=== PATIENT | female | born 1980 | race Caucasian/White ===

== ENCOUNTER 2024-09-13 16:53 | Observation (INO) ==
[2024-09-13] MEDS: OPTIRAY 320 125ml IV ONE (17:03)
--- NOTE | 2024-09-13 17:26 | CT Scan Report ---
Clinical History: Neurological deficit. Possible stroke Technique: Axial computed tomography images were obtained of the brain from the vertex to the skull base without intravenous contrast. Comparison is made to the prior CT dated 09/05/2021 Findings: There is no sign of intracranial hemorrhage. There is normal saavedra-white matter differentiation with no sign of acute or old infarction. No midline shift or other form of herniation is identified. There is no hydrocephalus. No obvious mass lesion is seen on this noncontrast examination. The visualized portions of the orbits and paranasal sinuses appear unremarkable. The mastoid air cells appear clear Impression: Unremarkable noncontrast CT of the brain These findings were discussed with Dr. An at 5:25 PM on 09/13/2024 Electronically signed by Jose Roberto Hampton 09-13-2024 5:26 PM
--- NOTE | 2024-09-13 17:29 | Emergency Department Note ---
Impression & Plan Stroke-like symptoms, Chest pain ED Provider Note NAME: ARLEEN CHAPMAN AGE: 44 SEX: F : 1980 ARRIVES VIA: Walk-In INFORMANT: Patient, ED PROVIDER(S): Olu An DO CHIEF COMPLAINT: Strokelike symptoms HPI: The patient is a 44-year-old female who presented to the emergency department for an evaluation of strokelike symptoms. At approximately 1640 today she started having chest pain which was followed by anxiety as well as left facial droop. She also complains of left-sided numbness. The patient denies having any fever or headache. She denies having any difficulty breathing. ROS: See above HPI for pertinent positives & negatives. A total of 10 systems reviewed and were otherwise negative. PAST MEDICAL HISTORY: See Below PAST SURGICAL HISTORY: See Below FAMILY HISTORY: See Below SOCIAL HISTORY: See Below HOME MEDICATIONS: See Below ALLERGIES: See Below VITALS: See Below PHYSICAL EXAMINATION: GENERAL: The patient is awake and alert. The patient is very anxious. EYES: The conjunctivae are clear. The pupils are round and reactive. EARS, NOSE, MOUTH AND THROAT: The nose is without any evidence of any deformity. NECK: The neck is nontender and supple. RESPIRATORY: Normal respiratory effort is noted there is no evidence of wheezing rhonchi or rales CARDIOVASCULAR: Tachycardic and regular heart sounds were noted auscultation. There is no definite murmur. GASTROINTESTINAL: The abdomen is soft. Abdomen is nontender. MUSCULOSKELETAL/EXTREMITIES: There is no evidence of gross deformity full range of motion is noted in the hips and shoulders. SKIN: There is no obvious evidence of any rash. There are no petechiae, pallor or cyanosis noted. NEUROLOGIC: Patient is awake alert and oriented x3 strength is symmetric patellar reflexes are 2+ bilaterally. There was a left-sided facial droop. Forehead appears to be slightly involved. MEDICAL DECISION MAKING: The patient is a 44-year-old female who presented to the emergency department with strokelike symptoms. The patient was inside the 3-hour window. She was made a stroke alert from triage. The patient was evaluated by myself. I discussed the patient's laboratory and radiographic studies with her. I did discuss the patient's condition with the telestroke neurologist from [facility]. The patient's symptoms were rapidly improving. Her blood pressure also was rapidly improving. The patient was not felt to be a candidate for TNK. She was felt to be a candidate for inpatient workup further for her strokelike symptoms. I discussed her condition with the on-call [facility] hospitalist group. Triage Nursing notes reviewed. Prior medical records reviewed Vital Signs: reviewed and remarkable for initial hypertension and tachycardia. Differential diagnosis: Infection, dehydration, metabolic abnormality, hypo/hyperglycemia, electrolyte disturbance, anemia, hypoxia, cardiac sources, intracerebral event, toxicologic, neurologic, as well as other pathologies. ER treatment provided: See below Diagnostics interpreted by me: ECG: EKG was obtained in the emergency department. My interpretation is sinus tachycardia at 109 bpm. There were no PVCs noted. Nonspecific ST abnormalities were noted. This was compared to a tracing from January 10, 2020. No changes were noted. Cardiac Monitoring: An order was placed for continuous cardiac monitoring. The monitor shows a rate of 98 bpm with sinus rhythm. Laboratory studies: As stated above and show below. Imaging studies: See below. Radiographic imaging was reviewed by myself Consultation(s): I discussed this case with Dr. Correia who is on-call for telestroke neurology. I discussed this case with Mary who is on for the [facility] hospitalist group. Past Med/Surg History Problem List (Updated 09/13/24 @ 18:53 by Olu An DO) Chest pain (Acute) Stroke-like symptoms (Acute) TIA (transient ischemic attack) Anxiety No significant past surgical history No significant past medical history Social History Smoking Status: Never smoker Preferred Language: [place] marital status: current occupational status: unemployed Feels Safe at Home: Yes Allergies Allergies Allergy/AdvReac Type Severity Reaction Status Date / Time No Known Allergies Allergy Verified 09/13/24 17:23 Home Meds Home Medications Medication Instructions Recorded Confirmed acetaminophen 500 mg tablet 1,000 mg PO Q6H PRN Pain 09/05/21 09/13/24 (Tylenol Extra Strength) albuterol sulfate 90 mcg/actuation 2 puff inhalation Q6H PRN 09/13/24 09/13/24 aerosol inhaler Shortness Of Breath Or Wheezing bupropion HCl 150 mg 24 hr tablet, 150 mg PO QAM 09/13/24 09/13/24 extended release fluoxetine 20 mg capsule 40 mg PO QAM 09/13/24 09/13/24 norethindrone (contraceptive) 0.35 0.35 mg PO QAM 09/13/24 09/13/24 mg tablet (Jencycla) Results & Data (ED) Vital Signs Vital Signs - 24 hr 09/13/24 16:54 09/13/24 17:02 09/13/24 17:24 Temperature 36.8 C Temperature Source Temporal Artery Scan Pulse Rate 118 H 103 H Pulse Rate [Apical] Respiratory Rate 18 18 Respiratory Effort / Characteristics Non-Labored Spontaneous Non-Labored Respiratory Depth Normal Normal Respiratory Pattern Blood Pressure 163/110 H Blood Pressure [Left Arm] Blood Pressure Mean 127 Blood Pressure Mean [Left Arm] Blood Pressure Position Sitting Pulse Oximetry 97 Oxygen Delivery Method Room Air Sepsis Recent Fever Within 48 Hours No Sepsis New/Unexplained Change in Mental Status No Sepsis Action Taken by Nursing No Action Required 09/13/24 17:25 09/13/24 17:57 09/13/24 18:00 Temperature Temperature Source Pulse Rate Pulse Rate [Apical] 108 H 111 H 109 H Respiratory Rate 20 20 20 Respiratory Effort / Characteristics Non-Labored Non-Labored Non-Labored Spontaneous Respiratory Depth Normal Normal Normal Respiratory Pattern Regular Blood Pressure Blood Pressure [Left Arm] 141/96 H 138/94 129/98 Blood Pressure Mean Blood Pressure Mean [Left Arm] 111 108 108 Blood Pressure Position Pulse Oximetry 96 94 95 Oxygen Delivery Method Room Air Room Air Room Air Sepsis Recent Fever Within 48 Hours Sepsis New/Unexplained Change in Mental Status Sepsis Action Taken by Nursing 09/13/24 18:00 Temperature Temperature Source Pulse Rate 112 H Pulse Rate [Apical] Respiratory Rate 18 Respiratory Effort / Characteristics Respiratory Depth Respiratory Pattern Blood Pressure Blood Pressure [Left Arm] Blood Pressure Mean Blood Pressure Mean [Left Arm] Blood Pressure Position Pulse Oximetry 96 Oxygen Delivery Method Room Air Sepsis Recent Fever Within 48 Hours Sepsis New/Unexplained Change in Mental Status Sepsis Action Taken by Correction Medications Current Medication List: was personally reviewed by me Laboratory Data Attestation: I reviewed the patient's lab results. 09/13/24 17:21 09/13/24 17:21 Lab Results 09/13/24 Range/Units 17:21 WBC 6.45 (4.8-10.8) K/ul RBC 4.70 (4.20-5.40) M/uL Hgb 13.9 (12.0-16.0) g/dl Hct 40.2 (37.0-47.0) % MCV 85.5 (80.0-100.0) fL MCH 29.6 (25.0-34.0) pg MCHC 34.6 (32.0-36.0) g/dL RDW Std Deviation 36.7 (36.4-46.3) fL RDW Coeff of Tala 11.9 (11.5-14.5) % Plt Count 239 (130-400) K/uL MPV 9.7 (9.4-12.4) fL Immature Gran % (Auto) 0.2 % Neut % (Auto) 67.4 % Lymph % (Auto) 22.8 % Clinton % (Auto) 7.4 % Eos % (Auto) 1.7 % Baso % (Auto) 0.5 % Neut # (Auto) 4.35 (1.40-6.50) K/uL Lymph # (Auto) 1.47 (1.20-3.40) K/uL Clinton # (Auto) 0.48 (0.11-0.59) K/uL Eos # (Auto) 0.11 (0.00-0.50) K/uL Baso # (Auto) 0.03 (0.00-0.20) K/uL Immature Gran # (Auto) 0.01 (0.01-0.20) K/uL PT 10.4 (9.0-12.0) Seconds INR 1.0 (0.9-1.1) APTT 27 (21-31) Seconds PTT Ratio 1.0 Sodium 136 (136-145) mmol/L Potassium 4.2 (3.5-5.1) mmol/L Chloride 104 (98-107) mmol/L Carbon Dioxide 25 (21-32) mmol/L Anion Gap 7 (3-11) BUN 16 (6-23) mg/dl Creatinine 1.20 (0.6-1.2) mg/dl Est Cr Clr Drug Dosing 78.5 ml/min eGFR 56.89 BUN/Creatinine Ratio 13.3 (10-20) Glucose 130 H (70-99(Fasting)) mg/dl Calcium 9.0 (8.6-10.3) mg/dl Magnesium 1.8 (1.7-2.4) mg/dl Total Bilirubin 0.3 (0.2-1.0) mg/dl AST 20 (13-39) U/L ALT 21 (7-52) U/L Alkaline Phosphatase 81 (34-104) U/L Troponin I High Sens < 2.3 (0-14) pg/ml Total Protein 6.8 (6.0-8.3) gm/dl Albumin 3.9 (3.4-5.0) gm/dl Globulin 2.9 (2.5-4.0) gm/dl Albumin/Globulin Ratio 1.3 (0.9-2) HCG, Quant 1 mIU/ml Administered Medications Discontinued Medications Ioversol (Optiray 320 125ml) 118 ml IV ONCE ONE Stop: 09/13/24 17:04 Last Admin: 09/13/24 17:03 Dose: 118 ml Documented By: DENNY Lorazepam (Lorazepam 2 Mg/1 Ml Vial) 1 mg IV NOW STA Stop: 09/13/24 17:38 Last Admin: 09/13/24 17:42 Dose: 1 mg Documented By: LIVE Imaging Data Attestation: I personally reviewed and interpreted this imaging study as follows: My Impression: 1 view chest x-ray was obtained in the emergency department. My interpretation is no free air or definite infiltrate, final report below. CT of the brain was obtained in the emergency department. My interpretation is no intracranial hemorrhage or mass effect, final report below. Radiologist's Impression: Chest X-Ray 09/13/24 16:59 Clinical History: Possible stroke Technique: A frontal view of the chest was obtained Findings: There are no confluent pulmonary infiltrates. The heart size is within normal limits. No pleural effusion or pneumothorax is seen. There is no definite pulmonary nodule. No fracture is noted. No foreign body is seen Impression: No active disease Electronically signed by Jose Roberto Hampton 09-13-2024 5:[address] 09/13/24 16:59 Clinical History: Neurological deficit. Possible stroke Technique: Axial computed tomography images were obtained of the brain from the vertex to the skull base without intravenous contrast. Comparison is made to the prior CT dated 09/05/2021 Findings: There is no sign of intracranial hemorrhage. There is normal saavedra-white matter differentiation with no sign of acute or old infarction. No midline shift or other form of herniation is identified. There is no hydrocephalus. No obvious mass lesion is seen on this noncontrast examination. The visualized portions of the orbits and paranasal sinuses appear unremarkable. The mastoid air cells appear clear Impression: Unremarkable noncontrast CT of the brain These findings were discussed with Dr. An at 5:25 PM on 09/13/2024 Electronically signed by Jose Roberto Hampton 09-13-2024 5:26 PM Head CTA 09/13/24 16:59 Clinical History: Neurological deficit. Possible stroke Technique: Axial computed tomography images were obtained of the brain after the administration of intravenous contrast according to the CT angiogram protocol Findings: No definite stenosis or aneurysm is seen of the anterior, middle, or posterior cerebral artery circulations. The visualized vertebral arteries and the basilar artery appear unremarkable Impression: Unremarkable CTA of the brain These findings were discussed with Dr. An at 5:25 PM on 09/13/2024 Electronically signed by Jose Roberto Hampton 09-13-2024 5:26 PM Neck CTA 09/13/24 16:59 Clinical History: Neurological deficit. Possible stroke Technique: Axial computed tomography images were obtained of the neck after the administration of intravenous contrast according to the CT angiogram protocol Findings: No stenosis is seen of the common carotid arteries bilaterally. The carotid bulbs appear normal. The remainder of the internal carotid arteries appear patent bilaterally. No stenosis of the external carotid arteries is seen The vertebral arteries are patent bilaterally with no significant stenosis seen. The visualized thoracic aorta appears unremarkable There is multilevel degenerative disc disease and osteoarthritis of the cervical spine. Impression: Unremarkable CTA of the neck Electronically signed by Jose Roberto Hampton 09-13-2024 5:28 PM Chest CTA 09/13/24 17:01 Clinical history: Possible stroke Technique: Axial computed tomography images were obtained of the chest before and after the administration of intravenous contrast according to the CT angiogram protocol Findings: There is mild dependent subsegmental atelectasis in both lower lobes. The lungs otherwise appear clear without infiltrate or mass. There is no pleural effusion or pneumothorax. There is no sign of pulmonary fibrosis or other diffuse interstitial process. No endobronchial lesion is seen There is no mediastinal, hilar, or axillary adenopathy. The thoracic aorta appears unremarkable with no sign of aneurysm or dissection. There is no pericardial effusion. There is no definite sign of pulmonary embolism. The visualized upper abdomen appears unremarkable. No fracture is seen. No focal osseous lesion is evident Impression: 1. Normal-appearing thoracic aorta 2. No definite sign of pulmonary embolism 3. Essentially normal-appearing lungs Electronically signed by Jose Roberto Hampton 09-13-2024 5:30 PM Discharge Plan Visit Data Chief Complaint: TIA Symptoms Stated Complaint: LEFT SIDE FACIAL NUMBNESS, CHEST PAIN ED Provider: Olu An Discharge Problem: Stroke-like symptoms, Chest pain Patient Disposition: Being Evaluated by Hospitalist Forms Stand Alone Forms: [facility] Prescriptions Prescriptions: No Action acetaminophen [Tylenol Extra Strength] 500 mg Tablet 1,000 mg PO Q6H PRN (Reason: Pain) albuterol sulfate 90 mcg/actuation HFA aerosol inhaler 2 puff INHALATION Q6H PRN (Reason: Shortness Of Breath Or Wheezing) norethindrone (contraceptive) [Jencycla] 0.35 mg tablet 0.35 mg PO QAM fluoxetine 20 mg capsule 40 mg PO QAM bupropion HCl 150 mg tablet extended release 24 hr 150 mg PO QAM Referrals Referrals: PCP,NO [Physician] -
[2024-09-13 17:34] LABS: Basophils # (auto) 0.03 K/uL (0.00-0.20); Basophils % (auto) 0.5 %; Eosinophils # (auto) 0.11 K/uL (0.00-0.50); Eosinophils % (auto) 1.7 %; Hematocrit (blood only) 40.2 % (37.0-47.0); Hemoglobin 13.9 g/dl (12.0-16.0); Immature Granulocytes # (auto) 0.01 K/uL (0.01-0.20); Immature Granulocytes % (auto) 0.2 %; Lymphocytes # (auto) 1.47 K/uL (1.20-3.40); Lymphocytes % (auto) 22.8 %; Mean Corpuscular Hemoglobin 29.6 pg (25.0-34.0); Mean Corpuscular Hgb Conc 34.6 g/dL (32.0-36.0); Mean Corpuscular Volume 85.5 fL (80.0-100.0); Mean Platelet Volume 9.7 fL (9.4-12.4); Monocytes # (auto) 0.48 K/uL (0.11-0.59); Monocytes % (auto) 7.4 %; Neutrophils # (auto) 4.35 K/uL (1.40-6.50); Neutrophils % (auto) 67.4 %; Platelet Count 239 K/uL (130-400); RDW Coefficient of Variation 11.9 % (11.5-14.5); RDW Standard Deviation 36.7 fL (36.4-46.3); White Blood Count 6.45 K/ul (4.8-10.8)
--- NOTE | 2024-09-13 17:39 | XRay Report ---
Clinical History: Possible stroke Technique: A frontal view of the chest was obtained Findings: There are no confluent pulmonary infiltrates. The heart size is within normal limits. No pleural effusion or pneumothorax is seen. There is no definite pulmonary nodule. No fracture is noted. No foreign body is seen Impression: No active disease Electronically signed by Jose Roberto Hampton 09-13-2024 5:38 PM
[2024-09-13] MEDS: LORazepam 2 MG/1 ML VIAL IV STA (17:42)
[2024-09-13 17:53] LABS: Alanine Aminotransferase 21 U/L (7-52); Albumin Globulin Ratio 1.3 (0.9-2); Albumin Level 3.9 gm/dl (3.4-5.0); Alkaline Phosphatase 81 U/L (34-104); Anion Gap 7 (3-11); Aspartate Aminotransferase 20 U/L (13-39); BUN Creatinine Ratio 13.3 (10-20); Bilirubin,Total 0.3 mg/dl (0.2-1.0); Blood Urea Nitrogen 16 mg/dl (6-23); Carbon Dioxide 25 mmol/L (21-32); Chloride 104 mmol/L (98-107); Creatinine Clr Calc Pharmacy 78.5 ml/min; Globulin 2.9 gm/dl (2.5-4.0); Glucose 130 mg/dl (70-99(Fasting)); Magnesium 1.8 mg/dl (1.7-2.4); Potassium 4.2 mmol/L (3.5-5.1); Sodium 136 mmol/L (136-145); Total Protein 6.8 gm/dl (6.0-8.3)
[2024-09-13 18:00] LABS: Troponin I High Sensitivity < 2.3 pg/ml (0-14)
[2024-09-13 18:20] LABS: Partial Thromboplastin Time 27 Seconds (21-31); Prothrombin Time 10.4 Seconds (9.0-12.0)
--- NOTE | 2024-09-13 18:29 | History & Physical Report ---
Date of Service September 13, 2024 Assessment & Plan (1) Anxiety: (2) TIA (transient ischemic attack): Plan The patient is a 44-year-old female who presented to the ED on with complaints of left-sided chest pain, left facial numbness and right-sided facial droop Rule out TIA/CVA: Head CT negative, NIH 2, left facial numbness and mild right facial droop noted No TNK per neurology, admit for routine stroke rule out, head CT/head/neck CTA negative Check MRI, check echo, check cholesterol, check A1c Permissive hypertension, telemetry monitoring, neurology consult Hx anxiety: Continue home anxiety medications including fluoxetine/Wellbutrin A total of 60 minutes was spent on chart review/reviewing diagnostic data/facilitating plan of care/discussion with consultants Full code DVT prophylaxis:Lovenox History of Present Illness Chief Complaint: Left-sided chest pain, left facial numbness Primary Care Provider: Venus Carbajal MD The patient is a 44-year-old female with a past medical history of anxiety who presents to the ED on with complaints of left-sided chest pain, left facial numbness, mild right facial droop. Patient reports she was cooking when she developed left-sided chest pain. She then reports developing left facial numbness. She denies any generalized weakness. Denies any nausea/vomiting/diarrhea/abdominal pain. Denies any histories of stroke. She is a non-smoker. She does not drink. Reports being on estrogen containing control over the past 2 years. Her symptoms continue to slowly improve on exam. Her chest pain is now resolved. On arrival to the ED, labs fairly unremarkable. Glucose mildly elevated 130, troponin negative, chest pain and symptoms improved after Ativan administration in ER Chest x-ray negative Head CT negative Head/neck CTA negative Chest CTA negative for PE The patient will be admitted for stroke rule out Allergies Allergy/AdvReac Type Severity Reaction Status Date / Time No Known Allergies Allergy Verified 09/13/24 17:23 Home Medications Medication Instructions Recorded Confirmed Type acetaminophen 500 mg tablet 1,000 mg PO Q6H PRN Pain 09/05/21 09/13/24 History (Tylenol Extra Strength) albuterol sulfate 90 mcg/actuation 2 puff inhalation Q6H PRN 09/13/24 09/13/24 History aerosol inhaler Shortness Of Breath Or Wheezing bupropion HCl 150 mg 24 hr tablet, 150 mg PO QAM 09/13/24 09/13/24 History extended release fluoxetine 20 mg capsule 40 mg PO QAM 09/13/24 09/13/24 History norethindrone (contraceptive) 0.35 0.35 mg PO QAM 09/13/24 09/13/24 History mg tablet (Jencycla) Past Med/Surg History Problem List (Updated 09/13/24 @ 18:53 by Olu An DO) Chest pain (Acute) Stroke-like symptoms (Acute) TIA (transient ischemic attack) Anxiety No significant past surgical history No significant past medical history Social History Smoking Status: Never smoker Second Hand Exposure: Yes; Do You Dip or Chew Tobacco: No; Tobacco Cessation Education Requested by Patient: No Hx Alcohol Use: No Hx Substance Use: No Preferred Language: Sierra Leonean Communication Ability: Effective 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 Required: No Beliefs That Will Affect Care: None marital status: Current Living Situation: Spouse current occupational status: unemployed Other Information That Helps Us Care for You: No Feels Safe at Home: Yes Safety Concerns: Feels Safe At This Time Assistive Devices: None Review of Systems Review of Systems: All systems reviewed & are unremarkable except as noted in HPI & below Physical Exam Constitutional: WD/WN, vitals as above Eyes: PERRL, conjunctivae normal, anicteric sclerae ENMT: external ear and nose normal, oropharynx normal Neck: trachea midline, no thyromegaly Respiratory: normal respiratory effort, lungs clear to auscultation Cardiovascular: RRR, no murmur, no edema Gastrointestinal (Abdomen): normal bowel sounds, soft, nontender, no hepatosplenomegaly Musculoskeletal: no cyanosis or clubbing, extremities motor strength 5/5 Neurologic: PERRL, EOMI, accommodation nl, no face palsy, no dysarthria Psychiatric: A+Ox3, euthymic affect Lymphatic: no cervical or axillary lymphadenopathy Results & Data Results & Data Vital Signs (Past 12 Hours) Vital Signs Temp Pulse Pulse Resp BP BP Pulse Ox 09/13/24 18:00 112 H 18 96 09/13/24 18:00 109 H 20 129/98 95 09/13/24 17:57 111 H 20 138/94 94 09/13/24 17:25 108 H 20 141/96 H 96 09/13/24 17:24 103 H 09/13/24 17:02 18 09/13/24 16:54 36.8 C 118 H 18 163/110 H 97 O2 Del Method 09/13/24 18:00 Room Air 09/13/24 18:00 Room Air 09/13/24 17:57 Room Air 09/13/24 17:25 Room Air 09/13/24 17:24 09/13/24 17:02 09/13/24 16:54 Room Air Diagnostic Findings Laboratory Results WBC 6.45 K/ul (4.8-10.8) 09/13/24 17:21 RBC 4.70 M/uL (4.20-5.40) 09/13/24 17:21 Hgb 13.9 g/dl (12.0-16.0) 09/13/24 17:21 Hct 40.2 % (37.0-47.0) 09/13/24 17:21 MCV 85.5 fL (80.0-100.0) 09/13/24 17:21 MCH 29.6 pg (25.0-34.0) 09/13/24 17:21 MCHC 34.6 g/dL (32.0-36.0) 09/13/24 17:21 RDW Std Deviation 36.7 fL (36.4-46.3) 09/13/24 17:21 RDW Coeff of Tala 11.9 % (11.5-14.5) 09/13/24 17:21 Plt Count 239 K/uL (130-400) 09/13/24 17:21 MPV 9.7 fL (9.4-12.4) 09/13/24 17:21 Immature Gran % (Auto) 0.2 % 09/13/24 17:21 Neut % (Auto) 67.4 % 09/13/24 17:21 Lymph % (Auto) 22.8 % 09/13/24 17:21 Nance % (Auto) 7.4 % 09/13/24 17:21 Eos % (Auto) 1.7 % 09/13/24 17:21 Baso % (Auto) 0.5 % 09/13/24 17:21 Neut # (Auto) 4.35 K/uL (1.40-6.50) 09/13/24 17:21 Lymph # (Auto) 1.47 K/uL (1.20-3.40) 09/13/24 17:21 Nance # (Auto) 0.48 K/uL (0.11-0.59) 09/13/24 17:21 Eos # (Auto) 0.11 K/uL (0.00-0.50) 09/13/24 17:21 Baso # (Auto) 0.03 K/uL (0.00-0.20) 09/13/24 17:21 Immature Gran # (Auto) 0.01 K/uL (0.01-0.20) 09/13/24 17:21 PT 10.4 Seconds (9.0-12.0) 09/13/24 17:21 INR 1.0 (0.9-1.1) 09/13/24 17:21 APTT 27 Seconds (21-31) 09/13/24 17:21 PTT Ratio 1.0 09/13/24 17:21 Sodium 136 mmol/L (136-145) 09/13/24 17:21 Potassium 4.2 mmol/L (3.5-5.1) 09/13/24 17:21 Chloride 104 mmol/L (98-107) 09/13/24 17:21 Carbon Dioxide 25 mmol/L (21-32) 09/13/24 17:21 Anion Gap 7 (3-11) 09/13/24 17:21 BUN 16 mg/dl (6-23) 09/13/24 17:21 Creatinine 1.20 mg/dl (0.6-1.2) 09/13/24 17:21 Est Cr Clr Drug Dosing 78.5 ml/min 09/13/24 17:21 eGFR 56.89 09/13/24 17:21 BUN/Creatinine Ratio 13.3 (10-20) 09/13/24 17:21 Glucose 130 mg/dl (70-99(Fasting)) H 09/13/24 17:21 Calcium 9.0 mg/dl (8.6-10.3) 09/13/24 17:21 Magnesium 1.8 mg/dl (1.7-2.4) 09/13/24 17:21 Total Bilirubin 0.3 mg/dl (0.2-1.0) 09/13/24 17:21 AST 20 U/L (13-39) 09/13/24 17:21 ALT 21 U/L (7-52) 09/13/24 17:21 Alkaline Phosphatase 81 U/L (34-104) 09/13/24 17:21 Troponin I High Sens < 2.3 pg/ml (0-14) 09/13/24 17:21 Total Protein 6.8 gm/dl (6.0-8.3) 09/13/24 17:21 Albumin 3.9 gm/dl (3.4-5.0) 09/13/24 17:21 Globulin 2.9 gm/dl (2.5-4.0) 09/13/24 17:21 Albumin/Globulin Ratio 1.3 (0.9-2) 09/13/24 17:21 HCG, Quant 1 mIU/ml 09/13/24 17:21 Impressions Chest X-Ray 09/13/24 16:59 Clinical History: Possible stroke Technique: A frontal view of the chest was obtained Findings: There are no confluent pulmonary infiltrates. The heart size is within normal limits. No pleural effusion or pneumothorax is seen. There is no definite pulmonary nodule. No fracture is noted. No foreign body is seen Impression: No active disease Electronically signed by Jose Roberto Hampton 09-13-2024 5:[address] 09/13/24 16:59 Clinical History: Neurological deficit. Possible stroke Technique: Axial computed tomography images were obtained of the brain from the vertex to the skull base without intravenous contrast. Comparison is made to the prior CT dated 09/05/2021 Findings: There is no sign of intracranial hemorrhage. There is normal saavedra-white matter differentiation with no sign of acute or old infarction. No midline shift or other form of herniation is identified. There is no hydrocephalus. No obvious mass lesion is seen on this noncontrast examination. The visualized portions of the orbits and paranasal sinuses appear unremarkable. The mastoid air cells appear clear Impression: Unremarkable noncontrast CT of the brain These findings were discussed with Dr. An at 5:25 PM on 09/13/2024 Electronically signed by Jose Roberto Hampton 09-13-2024 5:26 PM Head CTA 09/13/24 16:59 Clinical History: Neurological deficit. Possible stroke Technique: Axial computed tomography images were obtained of the brain after the administration of intravenous contrast according to the CT angiogram protocol Findings: No definite stenosis or aneurysm is seen of the anterior, middle, or posterior cerebral artery circulations. The visualized vertebral arteries and the basilar artery appear unremarkable Impression: Unremarkable CTA of the brain These findings were discussed with Dr. An at 5:25 PM on 09/13/2024 Electronically signed by Jose Roberto Hampton 09-13-2024 5:26 PM Neck CTA 09/13/24 16:59 Clinical History: Neurological deficit. Possible stroke Technique: Axial computed tomography images were obtained of the neck after the administration of intravenous contrast according to the CT angiogram protocol Findings: No stenosis is seen of the common carotid arteries bilaterally. The carotid bulbs appear normal. The remainder of the internal carotid arteries appear patent bilaterally. No stenosis of the external carotid arteries is seen The vertebral arteries are patent bilaterally with no significant stenosis seen. The visualized thoracic aorta appears unremarkable There is multilevel degenerative disc disease and osteoarthritis of the cervical spine. Impression: Unremarkable CTA of the neck Electronically signed by Jose Roberto Hampton 09-13-2024 5:28 PM Chest CTA 09/13/24 17:01 Clinical history: Possible stroke Technique: Axial computed tomography images were obtained of the chest before and after the administration of intravenous contrast according to the CT angiogram protocol Findings: There is mild dependent subsegmental atelectasis in both lower lobes. The lungs otherwise appear clear without infiltrate or mass. There is no pleural effusion or pneumothorax. There is no sign of pulmonary fibrosis or other diffuse interstitial process. No endobronchial lesion is seen There is no mediastinal, hilar, or axillary adenopathy. The thoracic aorta appears unremarkable with no sign of aneurysm or dissection. There is no pericardial effusion. There is no definite sign of pulmonary embolism. The visualized upper abdomen appears unremarkable. No fracture is seen. No focal osseous lesion is evident Impression: 1. Normal-appearing thoracic aorta 2. No definite sign of pulmonary embolism 3. Essentially normal-appearing lungs Electronically signed by Jose Roberto Hampton 09-13-2024 5:30 PM Supervising Physician Co-Signing Physician Notes Attending addendum: The patient was seen and examined in the emergency She was admitted with TIA symptoms and chest pain with history of anxiety and depression She complained to have some numbness or weird feeling involving the left side of the face and adjoining area of the neck and associated with chest pain mostly at the back of the chest She did not have any visual symptoms, numbness or tingling in the extremities, any dysarthria or any problem with swallowing and she did not have any weakness involving any side of the body She has had teleneuro evaluation On examination Lying in bed without any acute distress but looks very anxious Looks anxious and remained hemodynamically stable with tachycardia of 108 Chestclear to auscultate bilaterally HeartS1-S2, regular Abdomenbenign Extremitiesno edema CNSalert, awake and oriented x 3. Questionable sensory impairment in left face but otherwise no focal sensory or motor deficit appreciated Her labs, EKG and imaging studies reviewed Doubt any cardiac cause of chest pain TIA/stroke to be ruled out and will have usual investigations as per the neurologist Agree with assessment and plan as outlined above by MINDA Barros and take the full responsibility of care in the hospital Total time taken to document all this was [address] Anisha Almanza
[2024-09-13 19:22] LABS: Appearance Urine Clear (Clear); Bilirubin Urine Negative (Negative); Blood Urine Negative (Negative); Color Urine Yellow; Glucose Urine UA Negative (Negative); Ketones Urine Negative (Negative); Leukocyte Esterase Urine Negative (Negative); Nitrite Urine Negative (Negative); Protein Urine Negative (Negative); Specific Gravity Urine > 1.045 (1.000-1.030); Urobilinogen Urine Negative (Negative)
[2024-09-13] MEDS ORDERED: PHARMACIST DISCHARGE MED REC CONSULT PRN (20:41)
--- NOTE | 2024-09-13 23:53 | Magnetic Resonance Report ---
Exam(s): MRI HEAD Without Contrast EXAM: MR Head Without Intravenous Contrast CLINICAL HISTORY: tia. TECHNIQUE: Magnetic resonance images of the head/brain without intravenous contrast in multiple planes. COMPARISON: CT Brain 09-13-2024. CTA Brain 09-13-2024. FINDINGS: Brain: Age-appropriate central and peripheral atrophy. No acute stroke. No focal parenchymal abnormality. No acute hemorrhage. No abnormal extra-axial fluid collection. Ventricles: No midline shift. No ventriculomegaly. Bones/joints: Unremarkable. No acute fracture. Sinuses: Unremarkable as visualized. No acute sinusitis. Mastoid air cells: Unremarkable as visualized. No mastoid effusion. Orbits: Unremarkable as visualized. IMPRESSION: No acute abnormality. Electronically signed by: Pavan Braxton M.D. 09/13/24 23:52 PM
[2024-09-14] MEDS: ACETAMINOPHEN 500 MG TAB PO STA (01:28)
--- OUTSIDE RECORDS SUMMARY | 2024-09-14 02:20 | External Medical Summary | Summary of Care ---
Author Name Unknown Organization [facility] Address [address] [place] [address] Phone [phone] Care Team Providers Care Machine I Engraver Name Role Phone Venus Carbajal MD Primary Care Provider Reason for Visit * Reason Onset Date Comments Durable Medical Equipment 08/30/2024 CPAP S etup Encounter Details Date Type Department Care Team (Late st Contact Info) Description 08/30/2024 Telephone Sleep Disorders [facility]tr [facility] [address] [place] [address] Tarah Young CRNP [address] [place] [address] Durable Medical Equipment (CPAP Setup) Allergies No known active allergiesdocumented as of this encounter (statuses as of 08/31/2024) Medications Azelastine HCl 0.1 % Nasal Solution Administer into nostril 1 [place] in the morning AND 1 [place] before bedtime. 30 mL 12 2 Active Fluticasone Propionate 50 MCG/ACT Nasal Suspension Administer into each nostril 2 Sprays in the morning AND 2 Sprays before bedtime. 11.1 mL 5 2 Active Qvar RediHaler 80 MCG/ACT Inhalation Aerosol Breath Activated (Beclomethasone Diprop HFA)Indications:M ild persistent asthma without complication Inhale 2 Puffs by mouth in the morning and 2 Puffs before bedtime. 1 Each 5 3 Active Norethindrone 0.35 MG Oral TabletIndications :Excessive bleeding in premenopausal period Take 1 Tablet by mouth in the morning. 84 Tablet 4 4 Active Albuterol Sulfate HFA 108 (90 Base) MCG/ACT Inhalation Aerosol SolutionIndicatio ns:Mild persistent asthma without complication Inhale 2 Puffs by mouth every 6 hours as needed for Shortness of Breath or Cough. 8 g 1 4 Active buPROPion HCl ER (XL) 150 MG Oral Tablet Extended Release 24 Hour (Wellbutrin XL)Indications:Mo derate recurrent major depression (HCC),Mild binge-eating disorder Take 1 Tablet by mouth in the morning. 30 Tablet 5 5 Active FLUoxetine HCl 20 MG Oral Capsule (PROzac)Indicatio ns:PTSD (post-traumatic stress disorder),BRITANY (generalized anxiety disorder),Mild binge-eating disorder Take 2 Capsules by mouth in the morning. Every morning.. 60 Capsule 5 5 Active documented as of this encounter (statuses as of 08/31/2024) Active Problems Problem Noted Date Diagnosed Date Moderate recurrent major depression 08/23/2024 Body mass index (BMI) of 40.0 to 44.9 in adult 0 08/23/2024 PTSD (post-traumatic stress disorder) 07/12/2024 BRITANY (generalized anxiety disorder) 07/12/2024 Polyp of colon 06/24/2022 Overview (10/27/2022): 09/2022 - two polyps. Repeat 3yrs. Mild persistent asthma without complication 06/2022 COVID-19 virus infection 11/09/2021 Overview (11/09/2021): 10/20/21 Allergies 11/09/2021 History of gestational diabetes 11/09/2021 Binge eating disorder 11/09/2021 Depressive disorder 10/16/2021 documented as of this encounter (statuses as of 08/31/2024) Resolved Problems Problem Noted Date Diagnosed Date Resolved Date Body mass index (BMI) of 40. 0 to 44.9 in adult 08/02/2022 11/10/2023 Overview: Per Obesity protocol documented as of this encounter (statuses as of 08/31/2024) Immunizations Name Administration Dates Next Due COVID-19 mRNA, LNP-s, No Pre serve, 2-Dose Series (Moderna) 08/25/2020,07/28/2020 COVID-19 mRNA, LNP-s, No Pre serve, 2-Dose Series (Pfizer) 10/11/2021,03/26/2021 COVID-19, LNP-s, No Preserve , Arya-sucrose, Ages 12+ (Pfizer) 02/12/2023 Covid-19, Mrna, Lnp-s, Pf, B ivalent, 30 Mcg, IM, 12 yrs and above (Pfizer) 02/03/2022 Pneumococcal Conjugate Vaccine, 20-valent (Prevn ar20) 09/22/2022 Seasonal Influenza Vac., MDV, IM, 0.5 mL (Fluzon e) 02/02/2012 Seasonal Influenza, PF, 6 M & above, IM , (FluLaval or Fluzone) 02/03/2023,02/14/2020 Seasonal Influenza, Trivalent, (IIV3), PF, (Fluz one) 02/14/2024 TD, Preservative Free 07/21/2008 TDAP (age 10 and older)(Boostrix) 09/22/2022 documented as of this encounter Social History Tobacco Use Types Packs/Day Years Used Date Smoking Tobacco: Never Smokeless Tobacco: Never Alcohol Use Standard Drinks/Week Comments Not Currently 0 (1 standard drink = 0.6 oz pur e alcohol) PHQ-2 Answer Date Recorded PHQ Adult Total Score 14 07/12/2024 Hunger Vital Sign Answer Date Recorded Within the past 12 months, y ou worried that your food would run out before you got the money to buy more. Never true 10/27/19 24 Within the past 12 months, t he food you bought just didn't last and you didn't have money to get more. Never true 10/27/2023 Childcare Answer Date Recorded Do you feel overwhelmed with taking care of a child, family member or friend? No 10/27/2023 Does your family need help f inding childcare? (Household - for ages 0-17 years) Not on file 10/27/2023 Clothing Answer Date Recorded Have you been unable to get clothing when it was really needed? No 10/27/2023 Is your family able to get c lothes or diapers when needed? (Household - for ages 0-17 years) Not on file 10/27/2023 Personal Safety Answer Date Recorded Do you feel unsafe or have concerns for your saf ety? No 10/27/2023 Do you have concerns for you r family's safety? (Household - for ages 0-17 years) Not on file 10/27/2023 Utilities Answer Date Recorded Do you have trouble paying y our heating, water, or electric bill? No 10/27/2023 Is your family able to pay t he heat, water, or electric bill? (Household - for ages 0-17 years) Not on file 10/27/2023 Does your family have access to good internet? (Household - for ages 0-17 years) Not on file 10/27/2023 Employment Status Answer Date Recorded Are you unemployed or without regular income? No 10/27/2023 [facility] the [facility] have a [facility] income? (Household - for ages 0-17 years) Not on file 10/27/2023 Social Connections Answer Date Recorded How often do you feel lonely or isolated from th ose around you? Rarely 10/27/2023 Financial Resource Strain Answer Date R ecorded Do you have any trouble payi ng for your medications, or do you think you might in the future? No 10/27/2023 Does your family have troubl e paying for medicine? (Household - for ages 0-17 years) Not on file 10/27/2023 Transportation Needs Answer Date Record ed READ ONLY Do you have troubl e getting a ride to medical visits or work? Never True 10/27/2023 Does your family have a hard time getting a ride to doctors visits? (Household - for ages 0-17 years) Not on file 10/27/2023 Has lack of transportation k ept you from medical appointments, meetings, work, or from getting things needed for daily living? Check all that apply. (Adult - for ages 18 years and over) Not on file 10/27/2023 Do you (or your family) have trouble finding or paying for a ride (transportation)? (Household - for ages 0-17 years) Not on file 10/27/2023 Housing Stability Answer Date Recorded Do you currently live in a s helter or have no steady place to sleep at night? No 10/27/2023 READ ONLY Do you think you a re at risk of becoming homeless? No 10/27/2023 Does your family worry about paying for your home or becoming homeless? (Household - for ages 0-17 years) Not on file 0 10/27/2023 Are you homeless or worried that you might be in the future? (Adult - for ages 18 years and over) Not on file Are you (or your family) vera eless or worried that you might be in the future? (Household - for ages 0-17 years) Not on file Food Insecurity Answer Date Recorded Do you need food for this week? No 10/27/2023 Are you able to get enough f ood for your family? (Household - for ages 0-17 years) Not on file 10/27/2023 Does your family need food t his week? (Household - for ages 0-17 years) Not on file 10/27/2023 Do you always have enough fo od for your family? (Household - for ages 0-17 years) Not on file 10/27/2023 Food Insecurity Answer Date Recorded Within the past 12 months, y ou worried that your food would run out before you got the money to buy more. Never true 10/27/19 24 Within the past 12 months, t he food you bought just didn't last and you didn't have money to get more. Never true 10/27/2023 Do you need food for this week? No 10/27/2023 Comments No Sex and Gender Information Value Date Recorded Sex Assigned at Female 10/13/2021 6:34 PM EDT Legal Sex Female 4:17 PM EDT Gender Identity Female 10/13/2021 6:34 PM EDT Sexual Orientation Straight 10/13/2021 6: 34 PM EDT documented as of this encounter Miscellaneous Notes * Telephone Encounter - Franck Gurrola, REHABILITATION AIDE/SCHEDULER - 08/31/2024 6:27 AM EDT Pricilla/Kelsey/Supriya, ?? Received orders to setup Jayshree Garcia on an [employer] unit. Thanks, Amos * Telephone Encounter - Vanessa Gutierrez OSA - 08/30/2024 9:19 AM EDT DME order for CPAP, GSS requested. Please review and assist if Pt qualifies. Thanks! documented in this encounter Plan of Treatment Upcoming Encounters Date Type Department Care Team (Late st Contact Info) Description 09/21/2024 10:30 AM EDT Office Visit Gynecology/Obstetrics [facility] [address] [place] [id number] Angela Ayers PA-C [address] [place] [id number] 12/07/2024 8:40 AM EDT Office Visit Family Practice [facility] [address] [place] [phone] Venus Carbajal MD [address] [place] [address] 02/12/2025 8:15 AM EDT Imaging Radiology [facility] [address] [place] [phone] Scheduled Procedures Name Priority Associated Diagnoses Date/Ti me COLONOSCOPY FLEXIBLE PROXIMA L DIAGNOSTIC Recall History of colonic polyps Health Maintenance Due Date Last Done Comments HIV Screening 08/14/1994 Hepatitis C Screening 08/14/1997 Hepatitis B Vaccine (1 of 3 - 19+ 3-dose series) 08/14/1998 COVID-19 Vaccine ( season) 2024 02/12/2023, 02/03/2022, 10/11/2021, Additional history exists Cologuard 08/14/2024 Fecal Occult Blood Test 08/14/2024 Sigmoidoscopy 08/14/2024 Mammogram 02/16/2025 02/17/2024, 01/22, 10/29/2022, Additional history exists Depression Monitoring 07/12/2025 07/12/2024 Colonoscopy 10/25/2025 10/25/2022, 10/25/2022 Colorectal Cancer Screening 10/25/2025 Diabetes Screening 01/19/2026 01/19/2023, 11/10/2021 Lipid Panel 11/10/2026 11/10/2021 Pap Smear 08/02/2027 08/01/2024, 10/16/2021 Cervical Cancer Screening 08/01/2029 HPV/Co-Test 08/01/2029 08/01/2024 DTap/Tdap Vaccines (2 - Td or Tdap) 09/22/2032 09/22/2022, 07/21/2008 Pneumococcal Vaccine: Pediatrics (0 to 5 Years) and At-Risk Patients (6 to 18 Years and 19+ Years) Completed 09/22/2022 Influenza Vaccine (FLU shot) Completed , 02/03/2023, 02/14/2020, Additional history exists HPV (Gardasil) Vaccine Aged Out No lo nger eligible based on patient's age to complete this topic MENINGOCOCCAL (MENACTRA/MENVEO) Aged Out No longer eligible based on patient's age to complete this topic Meningitis B Vaccine (Bexsero/Trumemba) Aged Out No longer eligible based on patient's age to complete this topic documented as of this encounter Medical Devices Not on filedocumented as of this encounter Care Teams Machine I Engraver Relationship Specialty Start Date End Date Venus Carbajal MD [facility] [place] [id number] PCP - General Internal Medicine 10/05/21 documented as of this encounter
--- OUTSIDE RECORDS SUMMARY | 2024-09-14 02:20 | External Medical Summary | Summary of Care ---
Author Name Unknown Organization [facility] Address [address] [place] [address] Phone [phone] Care Team Providers Care Chief Commercial Officer Name Role Phone Venus Carbajal MD Primary Care Provider Reason for Visit * Reason Onset Date Comments Durable Medical Equipment 08/30/2024 CPAP S etup Encounter Details Date Type Department Care Team (Late st Contact Info) Description 08/30/2024 Telephone Sleep Disorders Ctr [facility] [address] [place] [address] Tarah Young CRNP [address] [place] [address] Durable Medical Equipment (CPAP Setup) Allergies No known active allergiesdocumented as of this encounter (statuses as of 08/31/2024) Medications Azelastine HCl 0.1 % Nasal Solution Administer into nostril 1 [place] in the morning AND 1 [place] before bedtime. 30 mL 12 2 Active [...] No 10/27/2023 Does the household have a [facility] source of income? (Household - for [...] Notes * Telephone Encounter - Franck Gurrola, KELP GATHERER - 08/31/2024 11:27 AM EDT Called and spoke with Jayshree Garcia and scheduled an appointment on 09/03/2024 @ 0800 for her to be setup with an autoPAP unit. * Telephone Encounter - Supriya Stanford OSA - 08/31/2024 11:18 AM EDT Amos, You can setup a your convenience. * Telephone Encounter - Franck Gurrola RRT - 08/31/2024 6:27 AM EDT Pricilla/Kelsey/Supriya, ?? Received orders to setup Jayshree Garcia on an autoPAP unit. Ruth, Amos * Telephone Encounter - Vanessa Gutierrez OSA - 08/30/2024 9:19 AM EDT DME order for CPAP, GSS requested. Please review and assist if Pt qualifies. Thanks! documented in this encounter Plan of Treatment Upcoming Encounters Date Type Department Care Team (Late st Contact Info) Description 09/21/2024 10:30 AM EDT Office Visit Gynecology/Obstetrics [facility] [address] [address] Angela Ayers PA-C [address] [place] [address] 12/07/2024 8:40 AM EDT Office Visit Family Practice [facility] [address] [address] Venus Carbajal MD [address] [place] [address] 02/12/2025 8:15 AM EDT Imaging Radiology [address] [address] Scheduled Procedures Name Priority Associated Diagnoses Date/Ti [...] filedocumented as of this encounter Care Teams Chief Commercial Officer Relationship Specialty Start Date End Date Venus Carbajal MD [address] [address] PCP - General Internal Medicine 10/05/21 documented as of this encounter
--- OUTSIDE RECORDS SUMMARY | 2024-09-14 02:20 | External Medical Summary | Summary of Care ---
Author Name Unknown Organization [facility] Address [address] [place] [address] Phone [phone] Care Team Providers Care Material Manager Name Role Phone Venus Carbajal MD Primary Care Provider Reason for Visit * Reason Onset Date Comments Durable Medical Equipment 09/03/2024 Autopa p Setup Encounter Details Date Type Department Care Team (Late st Contact Info) Description 09/03/2024 Telephone Sleep Lab [facility] [address] [place] [address] Franck Gurrola, CALENDAR CONTROL CLERK BLOOD BANK Durable Medical Equipment (Autopap Setup) Allergies No known active allergiesdocumented as of this encounter (statuses as of 09/03/2024) Medications Azelastine HCl 0.1 % Nasal Solution Administer into nostril 1 [place] in the morning AND 1 [place] before bedtime. 30 mL 12 2 Active [...] as of this encounter (statuses as of 09/03/2024) Active Problems Problem Noted Date Diagnosed Date [...] as of this encounter (statuses as of 09/03/2024) Resolved Problems Problem Noted Date Diagnosed Date Resolved Date Body mass index (BMI) of 40. 0 to 44.9 in adult 08/02/2022 11/10/2023 Overview: Per Obesity protocol documented as of this encounter (statuses as of 09/03/2024) Immunizations Name Administration Dates Next Due COVID-19 [...] No 10/27/2023 Does the household have a re lar source of income? (Household - for ages [...] Notes * Telephone Encounter - Franck Gurrola, CALENDAR CONTROL CLERK BLOOD BANK - 09/03/2024 9:17 AM EDT Patient came into the [facility] for an autopap set up. Patient and I discussed the And how itwould affect their sleep. Patient understood this well. Drowsy Driving information given to patient. The patient was educated on the importance of those who have a pacemaker, a defibrillator, or a cochlear implant or who's bed partner has any previously mentioned devices to NOT use headgear that utilizes magnets, per the magnaflux operator. Patient was set up with a Resmed AirSense 10 with heated Humidification and heated tubing. Ser# [id number] Settings: Autopap CPAP Pressure: 5-8 cwp Ramp Settin cwp over 15 minutes C-Flex: 2 Mask: Resmed Airtouch [id number] cushion/standard frame Product Code: 62931 Patient was fitted with her mask. Patient was also able to refit the mask herself. Patient understood all instructions very well. Patient and I discussed insurance protocol as well as my follow up procedure. Patient was encouraged to call with any issues. documented in this encounter Plan of Treatment Upcoming Encounters Date Type Department Care Team (Late st Contact Info) Description 09/21/2024 10:30 AM EDT Office Visit Gynecology/Obstetrics [facility] [address] [address] Angela Ayers PA-C [address] [place] [address] 12/07/2024 8:40 AM EDT Office Visit Family Practice [facility] [address] [address] Venus Carbajal MD [address] [place] [address] 02/12/2025 8:15 AM EDT Imaging Radiology [facility] [address] [facility] [address] [phone] Scheduled Procedures Name Priority Associated Diagnoses Date/Ti [...] filedocumented as of this encounter Care Teams Material Manager Relationship Specialty Start Date End Date Venus Carbajal MD [address] [address] PCP - General Internal Medicine 10/05/21 documented as of this encounter
--- OUTSIDE RECORDS SUMMARY | 2024-09-14 02:20 | External Medical Summary | Summary of Care ---
Author Name Unknown Organization [facility] Address [address] [place] [address] Phone [phone] Care Team Providers Care Last Putter Away Name Role Phone Venus Carbajal MD Primary Care Provider Reason for Visit * Reason Onset Date Comments Pre Cert/Prior Auth 08/31/2024 Encounter Details Date Type Department Care Team (Late st Contact Info) Description 08/31/[address] [facility] [address] [place], [place] [phone] Agustin An [facility] [address] [place], [place] [id number] Pre Cert/Prior Auth Allergies No known active allergiesdocumented as of this encounter (statuses as of 08/31/2024) Medications Azelastine HCl 0.1 % Nasal Solution Administer into nostril 1 [place] in the morning AND 1 [place] before bedtime. 30 mL 12 2 Active [...] No 10/27/2023 Does the household have a [facility] source of income? (Household - for ages [...] encounter Miscellaneous Notes * Telephone Encounter - Supriya Stanford OSA - 08/31/2024 10:28 AM EDT Verified [employer] D[employer] benefits on the online service, Availity. PPO plan Eff. 05/23/24 $625/ded-has $424 remaining to be met for this year Pd @ 90% up to OOP max of [id number] Rentals are paid up to the purchase quiñones. Auth is NOT needed for PAP, E0601. 11/17/23 OV, depression, anxiety, Snores. 08/10/24 WP AHI 14.1 08/30/24 Rx APAP 5-8. documented in this encounter Plan of Treatment Upcoming Encounters Date Type Department Care Team (Late st Contact Info) Description 09/21/2024 10:30 AM EDT Office Visit Gynecology/Obstetrics [facility] [address] [place] [address] Angela Ayers PA-C [address] [place] [address] 12/07/2024 8:40 AM EDT Office Visit Family Practice [facility] [address] [address] Venus Carbajal MD [address] [place] [address] 02/12/2025 8:15 AM EDT Imaging Radiology [facility] 1st [facility] [address] [phone] Scheduled Procedures Name Priority Associated Diagnoses Date/Ti [...] filedocumented as of this encounter Care Teams Last Putter Away Relationship Specialty Start Date End Date Venus Carbajal MD [address] [place] [address] PCP - General Internal Medicine 10/05/21 documented as of this encounter
--- OUTSIDE RECORDS SUMMARY | 2024-09-14 02:20 | External Medical Summary | Summary of Care ---
Author Name Unknown Organization [facility] Address [address] [place] [address] Phone [phone] Care Team Providers Care Shearer Helper Name Role Phone Venus Carbajal MD Primary Care Provider Reason for Visit * Reason Onset Date Comments Apnea Follow-up 09/10/2024 6 Day PAP Compli ance Encounter Details Date Type Department Care Team (Late st Contact Info) Description 09/10/2024 Telephone Sleep Lab [facility] [address] [place] [address] Franck Gurrola, STORAGE ADMINISTRATOR Apnea Follow-up (6 Day PAP Compliance ) Allergies No known active allergiesdocumented as of this encounter (statuses as of 09/10/2024) Medications Azelastine HCl 0.1 % Nasal Solution Administer into nostril 1 [place] in the morning AND 1 [place] before bedtime. 30 mL 12 2 Active [...] as of this encounter (statuses as of 09/10/2024) Active Problems Problem Noted Date Diagnosed Date [...] as of this encounter (statuses as of 09/10/2024) Resolved Problems Problem Noted Date Diagnosed Date Resolved Date Body mass index (BMI) of 40. 0 to 44.9 in adult 08/02/2022 11/10/2023 Overview: Per Obesity protocol documented as of this encounter (statuses as of 09/10/2024) Immunizations Name Administration Dates Next Due COVID-19 [...] 10/27/2023 Does the household have a re gular source of income? (Household - for ages [...] Notes * Telephone Encounter - Franck Gurrola, STORAGE ADMINISTRATOR - 09/10/2024 6:30 AM EDT AutoPAP COMPLIANCE: We have received a Poor compliance download from [employer] on 09/10/2024. It shows a 33% of use over 4 hours from 09/03/2024 to 09/08/2024. Average AHI of 4.7 with minimal leak. The pressure at the 95th percentile is 7.9 cmH2O. This report will be scanned into the chart. Sent patient a varinodeer message to see what I can do to help improve her usage. documented in this encounter Plan of Treatment Upcoming Encounters Date Type Department Care Team (Late st Contact Info) Description 09/21/2024 10:30 AM EDT Office Visit Gynecology/Obstetrics [facility] [address] [place] [address] Angela Ayers PA-C [address] [place] [address] 12/07/2024 8:40 AM EDT Office Visit Family Practice [facility] [address] [place] [address] Venus Carbajal MD [address] [place] [address] 02/12/2025 8:15 AM EDT Imaging Radiology [facility] 1st [facility] [address] [place] [phone] Scheduled Procedures Name Priority Associated Diagnoses Date/Ti [...] filedocumented as of this encounter Care Teams Shearer Helper Relationship Specialty Start Date End Date Venus Carbajal MD [address] [place] [address] PCP - General Internal Medicine 10/05/21 documented as of this encounter
--- OUTSIDE RECORDS SUMMARY | 2024-09-14 02:20 | External Medical Summary | Summary of Care ---
Author Name Unknown Organization [facility] Address [address] [place] [address] Phone [phone] Care Team Providers Care Cartoonist Special Effects Name Role Phone Venus Carbajal MD Primary Care Provider Reason for Visit * Reason Onset Date Comments Durable Medical Equipment 08/30/2024 CPAP Encounter Details Date Type Department Care Team (Late st Contact Info) Description 08/30/2024 [facility]phone [facility] [address] [place] [address] Tarah Young CRNP [address] [place] [address] Durable Medical Equipment (CPAP ) Allergies No known active allergiesdocumented as of this encounter (statuses as of 08/30/2024) Medications Azelastine HCl 0.1 % Nasal Solution Administer into nostril 1 [place] in the morning AND 1 [place] before bedtime. 30 mL 12 2 Active [...] as of this encounter (statuses as of 08/30/2024) Active Problems Problem Noted Date Diagnosed Date [...] as of this encounter (statuses as of 08/30/2024) Resolved Problems Problem Noted Date Diagnosed Date Resolved Date Body mass index (BMI) of 40. 0 to 44.9 in adult 08/02/2022 11/10/2023 Overview: Per Obesity protocol documented as of this encounter (statuses as of 08/30/2024) Immunizations Name Administration Dates Next Due COVID-19 [...] encounter Miscellaneous Notes * Telephone Encounter - Vanessa Gutierrez OSA - 08/30/2024 9:19 AM EDT DME order for CPAP, GSS requested. Please review and assist if Pt qualifies. Thanks! documented in this encounter Plan of Treatment Upcoming Encounters Date Type Department Care Team (Late st Contact Info) Description 09/21/2024 10:30 AM EDT Office Visit Gynecology/Obstetrics [facility] [address] [place] [address] Angela Ayers PA-C [address] [place] [address] 12/07/2024 8:40 AM EDT Office Visit Family Practice [facility] [address] [address] Venus Carbajal MD [address] [place] [address] 02/12/2025 8:15 AM EDT Imaging Radiology [facility] 1st [facility] [address] [phone] Scheduled Procedures Name Priority Associated Diagnoses Date/Ti [...] filedocumented as of this encounter Care Teams Cartoonist Special Effects Relationship Specialty Start Date End Date Venus Carbajal MD [address] [place] [address] PCP - General Internal Medicine 10/05/21 documented as of this encounter
--- OUTSIDE RECORDS SUMMARY | 2024-09-14 02:20 | External Medical Summary | Summary of Care ---
Author Name Unknown Organization [facility] Address [address] [place] [address] Phone [phone] Care Team Providers Care Assistant Import Manager Name Role Phone Venus Carbajal MD Primary Care Provider Reason for Visit * Reason Onset Date Comments Review Sleep Study 08/29/2024 +NAIMA Encounter Details Date Type Department Care Team (Late st Contact Info) Description 08/29/2024 Telephone Sleep Disorders Ctr [facility] [address] [facility] [place] [address] Tarah Young CRNP [address] [place] [place] [address] Review Sleep Study (+NAIMA) Allergies No known active allergiesdocumented as of this encounter (statuses as of 08/30/2024) Medications Azelastine HCl 0.1 % Nasal Solution Administer into nostril 1 [place] in the morning AND 1 [place] before bedtime. 30 mL 12 2 Active [...] on file Are you (or your family) vrea eless or worried that you might be [...] PM EDT documented as of this encounter Plan of Treatment Upcoming Encounters Date Type Department Care Team (Late st Contact Info) Description 09/21/2024 10:30 AM EDT Office Visit Gynecology/Obstetrics [facility] [address] [address] Angela Ayers PA-C [address] [address] 12/07/2024 8:40 AM EDT Office Visit Family Practice [facility] [address] [place] [address] Venus Carbajal MD [address] [place] [address] 02/12/2025 8:15 AM EDT Imaging Radiology [address] [place] [phone] Scheduled Procedures Name Priority Associated Diagnoses Date/Ti [...] Not on filedocumented as of this encounter Visit Diagnoses Diagnosis NAIMA (obstructive sleep apnea)- Primary Obstructive sleep apnea (adult) (pediatric) documented in this encounter Care Teams Assistant Import Manager Relationship Specialty Start Date End Date Venus Carbajal MD [address] [place] [address] PCP - General Internal Medicine 10/05/21 documented as of this encounter
--- OUTSIDE RECORDS SUMMARY | 2024-09-14 02:20 | External Medical Summary | Summary of Care ---
Author Name Unknown Organization [facility] Address [address] [place] [address] Phone [phone] Care Team Providers Care Claims Counsel Name Role Phone Venus Carbajal MD Primary Care Provider Reason for Visit * Reason Onset Date Comments Pre Cert/Prior Auth 08/31/2024 Encounter Details Date Type Department Care Team (Late st Contact Info) Description 08/31/2024 Telephone Sleep Lab [facility] [address] [place], [place] [phone] Agustin An [facility] [address] [place], [place] [phone] Pre Cert/Prior Auth Allergies No known active allergiesdocumented as of this encounter (statuses as of 09/04/2024) Medications Azelastine HCl 0.1 % Nasal Solution Administer into nostril 1 [place] in the morning AND 1 [place] before bedtime. 30 mL 12 2 Active [...] as of this encounter (statuses as of 09/04/2024) Active Problems Problem Noted Date Diagnosed Date [...] as of this encounter (statuses as of 09/04/2024) Resolved Problems Problem Noted Date Diagnosed Date Resolved Date Body mass index (BMI) of 40. 0 to 44.9 in adult 08/02/2022 11/10/2023 Overview: Per Obesity protocol documented as of this encounter (statuses as of 09/04/2024) Immunizations Name Administration Dates Next Due COVID-19 [...] No 10/27/2023 Does the household have a [facility] source [facility] income? (Household - [...] encounter Miscellaneous Notes * Telephone Encounter - Pricilla Underwood OSA - 09/04/2024 10:47 AM EDT Chuck KAUR * Telephone Encounter - Supriya Stanford OSA - 08/31/2024 10:28 AM EDT Verified [employer] D[employer] benefits on the online service, Availity. PPO plan Eff. 05/23/24 $625/ded-has $424 remaining to be met for this year Pd @ 90% up to OOP max of $9200-8712R Rentals are paid up to the purchase quiñones. Auth is NOT needed for PAP, E0601. 11/17/23 OV, depression, anxiety, Snores. 08/10/24 WP AHI 14.1 08/30/24 Rx APAP 5-8. documented in this encounter Plan of Treatment Upcoming Encounters Date Type Department Care Team (Late st Contact Info) Description 09/21/2024 10:30 AM EDT Office Visit Gynecology/Obstetrics [facility] [address] [address] Angela Ayers PA-C [address] [place] [address] 12/07/2024 8:40 AM EDT Office Visit Family Practice [facility] [address] [address] Venus Carbajal MD [address] [place] [address] 02/12/2025 8:15 AM EDT Imaging Radiology [facility] 1st [facility] [address] [phone] Scheduled Procedures Name Priority Associated Diagnoses Date/Ti [...] filedocumented as of this encounter Care Teams Claims Counsel Relationship Specialty Start Date End Date Venus Carbajal MD [address] [place] [address] PCP - General Internal Medicine 10/05/21 documented as of this encounter
--- OUTSIDE RECORDS SUMMARY | 2024-09-14 02:20 | External Medical Summary | Summary of Care ---
Author Name Unknown Organization [facility] Address [address] [place] [address] Phone [phone] Care Team Providers Care Crm System Administrator Name Role Phone Venus Carbajal MD Primary Care Provider Reason for Visit * Reason Onset Date Comments Durable Medical Equipment 08/30/2024 CPAP S etup Encounter Details Date Type Department Care Team (Late st Contact Info) Description 08/30/2024 Telephone Sleep Disorders Ctr [facility] [address] [place] [address] Tarah Young CRNP [address] [place] [address] Durable Medical Equipment (CPAP Setup) Allergies No known active allergiesdocumented as of this encounter (statuses as of 08/31/2024) Medications Azelastine HCl 0.1 % Nasal Solution Administer into nostril 1 [place] in the morning AND 1 [place] before bedtime. 30 mL 12 2 Active [...] No 10/27/2023 Does the household have a [facility] source of income? (Household - for [...] Notes * Telephone Encounter - Franck Gurrola, TRAINING DEVELOPER - 08/31/2024 11:27 AM EDT Called and [...] 09/21/2024 10:30 AM EDT Office Visit Gynecology/Obstetrics [facility] [address] [address] Angela Ayers PA-C [address] [place] [address] 12/07/2024 8:40 AM EDT Office Visit Family Practice [facility] [address] [address] Venus Carbajal MD [address] [place] [address] 02/12/2025 8:15 AM EDT Imaging Radiology [address] [place] [phone] Scheduled Procedures [...] filedocumented as of this encounter Care Teams Crm System Administrator Relationship Specialty Start Date End Date Venus Carbajal MD [address] [address] PCP - General Internal Medicine 10/05/21 documented as of this encounter
--- OUTSIDE RECORDS SUMMARY | 2024-09-14 02:21 | External Medical Summary | Summary of Care ---
Author Name Unknown Organization [facility] Address [address] [place] [address] Phone [phone] Care Team Providers Care Laundry Machine Tender Name Role Phone Venus Carbajal MD Primary Care Provider Reason for Visit * Reason Onset Date Comments Medication Pre-auth 07/16/2024 Encounter Details Date Type Department Care Team (Late st Contact Info) Description 07/16/2024 Telephone Family Practice [facility] [address] [place] [address] Venus Carbajal MD [address] [place] [address] Medication Pre-auth (/) Allergies No known active allergiesdocumented as of this encounter (statuses as of 07/27/2024) Medications Azelastine HCl 0.1 % Nasal Solution Administer into nostril 1 [place] in the morning AND 1 [place] before bedtime. 30 mL 12 2 Active Additional Information Patient not taking.Reported on 07/12/2024 Fluticasone Propionate 50 MCG/ACT Nasal Suspension Administer into each nostril 2 Sprays in the morning AND 2 Sprays before bedtime. 11.1 mL 5 2 Active Additional Information Patient not taking.Reported on 07/12/2024 Qvar RediHaler 80 MCG/ACT Inhalation Aerosol Breath Activated (Beclomethasone Diprop HFA)Indications:M ild persistent asthma without complication Inhale 2 Puffs by mouth in the morning and 2 Puffs before bedtime. 1 Each 5 3 Active Additional Information Patient not taking.Reported on 07/12/2024 Norethindrone 0.35 MG Oral TabletIndications :Excessive bleeding in premenopausal period Take 1 Tablet by mouth in the morning. 84 Tablet 4 4 Active Ozempic (1 MG/DOSE) 4 MG/3ML Subcutaneous Solution Pen-injector (Semaglutide (1 MG/DOSE))Indicati ons:History of gestational diabetes,Elevated blood pressure reading without diagnosis of hypertension,Body mass index (BMI) of 40.0 to 44.9 in adult ([facility]) Inject 1 mg under the skin once a week. 3 mL 5 4 Active Albuterol Sulfate HFA 108 (90 Base) MCG/ACT Inhalation Aerosol SolutionIndicatio ns:Mild persistent asthma without complication Inhale 2 Puffs by mouth every 6 hours as needed for Shortness of Breath or Cough. 8 g 1 4 Active FLUoxetine HCl 20 MG Oral Capsule (PROzac)Indicatio ns:PTSD (post-traumatic stress disorder),BRITANY (generalized anxiety disorder),Mild binge-eating disorder Take 3 Capsules by mouth in the morning. Every morning.. 90 Capsule 5 5 Active documented as of this encounter (statuses as of 07/27/2024) Active Problems Problem Noted Date Diagnosed Date PTSD (post-traumatic stress disorder) 07/12/2024 BRITANY (generalized anxiety disorder) 07/12/2024 Polyp of colon 06/24/2022 Overview (10/27/2022): 09/2022 - two polyps. Repeat 3yrs. Mild persistent asthma without complication 06/2022 COVID-19 virus infection 11/09/2021 Overview (11/09/2021): 10/20/21 Allergies 11/09/2021 History of gestational diabetes 11/09/2021 Binge eating disorder 11/09/2021 Depressive disorder 10/16/2021 documented as of this encounter (statuses as of 07/27/2024) Resolved Problems Problem Noted Date Diagnosed Date Resolved Date Body mass index (BMI) of 40. 0 to 44.9 in adult 08/02/2022 11/10/2023 Overview: Per Obesity protocol documented as of this encounter (statuses as of 07/27/2024) Immunizations Name Administration Dates Next Due COVID-19 [...] No 10/27/2023 Does the household have a [facility] source of income? (Household - for ages [...] encounter Miscellaneous Notes * Telephone Encounter - June Lal LPN - 07/27/2024 9:53 AM EST Unable to reach pt, LM for call to be returned or to check her MyG messages. * Telephone Encounter - Venus Carbajal MD - 07/27/2024 9:33 AM EST Has not read myg, please call with recs/questions. * Telephone Encounter - Evelyn Alejandra MED ASSIST - 07/18/2024 9:33 AM EST Authorization denied. * Telephone Encounter - Evelyn Alejandra MED ASSIST - 07/16/2024 3:02 PM EST Prior auth for Chad submitted on CoverMyMeds with diagnosis of binge eating disorder. Will awaitresponse. (Lucas: [id number]) documented in this encounter Plan of Treatment Upcoming Encounters Date Type Department Care Team (Late st Contact Info) Description 08/01/2024 5:15 PM EDT Office Visit Gynecology/Obstetrics [facility] [address] [place] [place] [address] Angela Ayers PA-C [address] [place] [address] 08/10/2024 10:00 AM EDT PulmDiagnostic Sleep Lab [facility] [address] [place] [address] [facility] Med Home Study [facility] [address] [place] [address] 08/23/2024 9:40 AM EDT Office Visit Family Practice [facility] [address] [place] [address] Venus Carbajal MD [address] [place] [address] Scheduled Procedures Name Priority Associated Diagnoses Date/Ti me COLONOSCOPY FLEXIBLE PROXIMA L DIAGNOSTIC Recall History of colonic polyps Health Maintenance Due Date Last Done Comments HIV Screening 08/14/1994 Hepatitis C Screening 08/14/1997 Hepatitis B Vaccine (1 of 3 - 19+ 3-dose series) 08/14/1998 HPV/Co-Test 08/14/2009 COVID-19 Vaccine ( season) 2024 02/12/2023, 02/03/2022, 10/11/2021, Additional history exists Cervical Cancer Screening 10/16/2024 Pap Smear 10/16/2024 10/16/2021 Mammogram 02/16/2025 02/17/2024, 01/22, 10/29/2022, Additional history exists Depression Monitoring 07/12/2025 07/12/2024 Colonoscopy 10/25/2025 10/25/2022, 10/25/2022 Diabetes Screening 01/19/2026 01/19/2023, 11/10/2021 Lipid Panel 11/10/2026 11/10/2021 DTap/Tdap Vaccines (2 - Td or Tdap) [...] filedocumented as of this encounter Care Teams Laundry Machine Tender Relationship Specialty Start Date End Date Venus Carbajal MD [address] [place] [address] PCP - General Internal Medicine 10/05/21 documented as of this encounter
--- OUTSIDE RECORDS SUMMARY | 2024-09-14 02:21 | External Medical Summary | Summary of Care ---
Author Name Unknown Organization [facility] Address [address] [place] [address] Phone [phone] Care Team Providers Care Cartoon Artist Name Role Phone Venus Carbajal MD Primary Care Provider Reason for Visit * Reason Onset Date Comments Test Results 08/27/2024 Encounter Details Date Type Department Care Team (Late st Contact Info) Description 08/27/2024 Telephone Gynecology/Obstetrics [facility] [address] [facility] [place] [address] Angela Ayers PA-C [address] [facility] [place] [address] Test Results Allergies No known active allergiesdocumented as of this encounter (statuses as of 08/27/2024) Medications Azelastine HCl 0.1 % Nasal Solution Administer into nostril 1 [place] in the morning AND 1 [place] before bedtime. 30 mL 12 2 Active [...] as of this encounter (statuses as of 08/27/2024) Active Problems Problem Noted Date Diagnosed Date [...] as of this encounter (statuses as of 08/27/2024) Resolved Problems Problem Noted Date Diagnosed Date Resolved Date Body mass index (BMI) of 40. 0 to 44.9 in adult 08/02/2022 11/10/2023 Overview: Per Obesity protocol documented as of this encounter (statuses as of 08/27/2024) Immunizations Name Administration Dates Next Due COVID-19 [...] encounter Miscellaneous Notes * Telephone Encounter - Yolanda Hughes RN - 08/27/2024 8:42 AM EDT Spoke with pt and she is agreeable. Prep discussed. Appt made. * Telephone Encounter - Angela Ayers PA-C - 08/27/2024 7:12 AM EDT Please let her know that pelvic ultrasound was unremarkable. No abnormalities noted. Would recommend appointment back for EMB given age and bleeding issues to evaluate for endometrial pathology further while she consider options from the POP. She had this procedure 3 years ago, but please review with her. No unprotected intercourse x 2 weeks. Will need UPT. Take Ibuprofen 600 mg about an hour before. documented in this encounter Plan of Treatment Upcoming Encounters Date Type Department Care Team (Late st Contact Info) Description 09/21/2024 10:30 AM EDT Office Visit Gynecology/Obstetrics [facility] [address] [place] [address] Angela Ayers PA-C [address] [place] [address] 12/07/2024 8:40 AM EDT Office Visit Family Practice [facility] [address] [place] [address] Venus Carbajal MD [address] [place] [address] 02/12/2025 8:15 AM EDT Imaging Radiology [facility] [address] [place] [id number] Scheduled Procedures Name Priority Associated Diagnoses Date/Ti [...] filedocumented as of this encounter Care Teams Cartoon Artist Relationship Specialty Start Date End Date Venus Carbajal MD [address] [place] [address] PCP - General Internal Medicine 10/05/21 documented as of this encounter
--- OUTSIDE RECORDS SUMMARY | 2024-09-14 02:21 | External Medical Summary | Summary of Care ---
Author Name Unknown Organization [facility] Address [address] [place] [address] Phone [phone] Care Team Providers Care Fiber Design Engineer Name Role Phone Venus Carbajal MD Primary Care Provider Reason for Visit * Reason Onset Date Comments Medication Pre-auth 07/16/2024 Encounter Details Date Type Department Care Team (Late st Contact Info) Description 07/16/[address] [facility] [address] [place] [address] Venus Carbajal MD [address] [place] [address] Medication Pre-auth (/) Allergies No known active allergiesdocumented as of this encounter (statuses as of 07/27/2024) Medications Azelastine HCl 0.1 % Nasal Solution Administer into nostril 1 [place] in the morning AND 1 [place] before bedtime. 30 mL 12 2 Active [...] (BMI) of 40.0 to 44.9 in adult ([facility]) Inject 1 mg under the skin once [...] No 10/27/2023 Does the household have a [facility] source of income? (Household - for ages [...] of binge eating disorder. Will awaitresponse. (Lucas: [id number]) documented in this encounter Plan of Treatment Upcoming Encounters Date Type Department Care Team (Late st Contact Info) Description 08/01/2024 5:15 PM EDT Office Visit Gynecology/Obstetrics [facility] [address] [place] [address] Angela Ayers PA-C [address] [place] [address] 08/10/2024 10:00 AM EDT PulmDiagnostic Sleep Lab [facility] [address] [place] [address] [facility] Med Home Study [facility] [address] [place] [address] 08/23/2024 9:40 AM EDT Office Visit Family Practice [facility] [address] [place] [address] Venus Carbajal MD [address] [place] [address] Scheduled Procedures Name Priority Associated Diagnoses Date/Ti [...] filedocumented as of this encounter Care Teams Fiber Design Engineer Relationship Specialty Start Date End Date Venus Carbajal MD [address] [place] [address] PCP - General Internal Medicine 10/05/21 documented as of this encounter
--- OUTSIDE RECORDS SUMMARY | 2024-09-14 02:21 | External Medical Summary | Summary of Care ---
Author Name Unknown Organization [facility] Address [address] [place] [address] Phone [phone] Care Team Providers Care Oxidation Engineer Name Role Phone Venus Carbajal MD Primary Care Provider Reason for Referral * Precert (Within 10 days (routine)) - Pending Review Specialty Diagnoses / Procedures Referred By Monica t Referred To Contact Sleep Disorders Diagnoses Loud snoring Bruxism Non-restorative sleep Sleep apnea, unspecified type Procedures TIMED SLEEP STUDY, UNATTEND, HR/O2 SAT/RESP Tarah Smith CRNP [address] [facility] [place] [address] Phone: tel: fax: Referral ID Status Reason Start Date Expiration Date V isits Requested Visits Authorized [id number] Pending Review 07/23/2024 [id number] Reason for Visit * Reason Onset Date Comments Sleep Apnea Device 03/14/2024 Re: WatchPAT Encounter Details Date Type Department Care Team (Late st Contact Info) Description 03/14/2024 Telephone Sleep Lab [facility] [address] [place] [address] Tarah Smith CRNP [address] [place] [address] Sleep Apnea Device (Re: WatchPAT) Allergies No known active allergiesdocumented as of this encounter (statuses as of 07/23/2024) Medications Azelastine HCl 0.1 % Nasal Solution Administer into nostril 1 [place] in the morning AND 1 [place] before bedtime. 30 mL 022 Active Additional Information Patient not taking.Reported on 07/12/2024 Fluticasone Propionate 50 MCG/ACT Nasal Suspension Administer into each nostril 2 Sprays in the morning AND 2 Sprays before bedtime. 11.1 mL 022 Active Additional Information Patient not taking.Reported on 07/12/2024 Qvar RediHaler 80 MCG/ACT Inhalation Aerosol Breath Activated (Beclomethasone Diprop HFA)Indications: Mild persistent asthma without complication Inhale 2 Puffs by mouth in the morning and 2 Puffs before bedtime. 1 Each 023 Active Additional Information Patient not taking.Reported on 07/12/2024 Norethindrone 0.35 MG Oral TabletIndication s:Excessive bleeding in premenopausal period Take 1 Tablet by mouth in the morning. 84 Tablet 4 024 Active Ozempic (1 MG/DOSE) 4 MG/3ML Subcutaneous Solution Pen-injector (Semaglutide (1 MG/DOSE))Indicat ions:History of gestational diabetes,Elevate d blood pressure reading without diagnosis of hypertension,Bod y mass index (BMI) of 40.0 to 44.9 in adult ([facility]) Inject 1 mg under the skin once a week. 3 mL 5 024 Active Albuterol Sulfate HFA 108 (90 Base) MCG/ACT Inhalation Aerosol SolutionIndicati ons:Mild persistent asthma without complication Inhale 2 Puffs by mouth every 6 hours as needed for Shortness of Breath or Cough. 8 g 1 023 2023 Discontinued(R efill) FLUoxetine HCl 40 MG Oral Capsule (PROzac)Indicati ons:Binge eating disorder,BRITANY (generalized anxiety disorder) Take 1 Capsule by mouth in the morning. Every morning.. 90 Capsule 1 024 2023 Discontinued Nirmatrelvir&Rit onavir 300/100 20 x 150 MG & 10 x 100MG Oral Tablet Therapy Pack (Paxlovid) Take 2 pink tablets of Nirmatrelvir and 1 white tablet of Ritonavir two times a day by mouth. 30 Tablet 024 2023 Discontinued(M edication List Clean Up) documented as of this encounter (statuses as of 07/23/2024) Active Problems Problem Noted Date Diagnosed Date [...] as of this encounter (statuses as of 07/23/2024) Resolved Problems Problem Noted Date Diagnosed Date Resolved Date Body mass index (BMI) of 40. 0 to 44.9 in adult 08/02/2022 11/10/2023 Overview: Per Obesity protocol documented as of this encounter (statuses as of 07/23/2024) Immunizations Name Administration Dates Next Due COVID-19 [...] as of this encounter Miscellaneous Notes * Addendum Note - Tarah Smith CRNP - 07/23/2024 2:21 PM ESTAddended by: TARAH SMITH on: 07/23/2024 02:21 PM Modules accepted: Orders * Telephone Encounter - Jayshree Weller OSA - 07/17/2024 11:10 AM EST Please make new order for Watchpat so she can be scheduled. Thank you * Telephone Encounter - Patricia Grimaldo LPN - 07/13/2024 11:18 AM EST Watchpat shows as initiated but never uploaded. Tarah, please place another order. Scheduling, please contact pt for WatchPAT setup. MyG sent to pt. * Telephone Encounter - Patricia Grimaldo LPN - 07/12/2024 2:13 PM EST I spoke with the pt, who says she completed the study when it was ordered, and discarded the equipment. She never received the message from 03/14/24. Please advise re: next steps. * Telephone Encounter - Venus Carbajal MD - 07/12/2024 1:26 PM EST Patient reports using the sleep study as instructed but never heard anything about results. Can youplease look into whether we ever received results from this? * Telephone Encounter - Ximena Hughes RPSGT - 03/14/2024 9:43 AM EDT Contacted the patient to inquire about the status of the WatchPat study she picked up on 02/08/2024.No data has been returned as of today 03/14/2024. Requested the patient complete the study within the next 2 days or return the unit to us if they do not plan to complete the study. Included my name and number in the message if they have any questions or concerns. documented in this encounter Plan of Treatment Upcoming Encounters Date Type Department Care Team (Late st Contact Info) Description 08/01/2024 5:15 PM EDT Office Visit Gynecology/Obstetrics [facility] [address] [place] [address] Angela Ayers PA-C [address] [address] 08/23/2024 9:40 AM EDT Office Visit Family Practice [facility] [address] [place] [address] Venus Carbajal MD [address] [place] [address] Scheduled Orders Name Type Priority Associated Diagnoses Orde r Schedule TIMED SLEEP STUDY, UNATTEND, HR/O2 SAT/RESP Procedures Routine Loud snoring Bruxism Non-restorative sleep Sleep apnea, unspecified type Ordered: 07/23/2024 Scheduled Procedures Name Priority Associated Diagnoses Date/Ti [...] as of this encounter Visit Diagnoses Diagnosis Loud snoring- Primary Bruxism Other specified psychophysiological malfunction Non-restorative sleep Other sleep disturbances Sleep apnea, unspecified type documented in this encounter Care Teams Oxidation Engineer Relationship Specialty Start Date End Date Venus Carbajal MD [address] [place] [address] PCP - General Internal Medicine 10/05/21 documented as of this encounter
--- OUTSIDE RECORDS SUMMARY | 2024-09-14 02:21 | External Medical Summary | Summary of Care ---
Author Name Unknown Organization [facility] Address [address] [place] [address] Phone [phone] Care Team Providers Care Energy Operations Vice President Name Role Phone Venus Carbajal MD Primary Care Provider Reason for Visit * Reason Onset Date Comments Sleep Apnea Device 03/14/2024 Re: WatchPAT Encounter Details Date Type Department Care Team (Late st Contact Info) Description 03/14/2024 Telephone Sleep Lab [facility] [address] [place] [address] Tarah Young CRNP [address] [place] [address] Sleep Apnea Device (Re: WatchPAT) Allergies No known active allergiesdocumented as of this encounter (statuses as of 07/13/2024) Medications Azelastine HCl 0.1 % Nasal Solution Administer into nostril 1 [place] in the morning AND 1 [place] before bedtime. 30 mL 12 Active Additional Information Patient not taking.Reported on 07/12/2024 Fluticasone Propionate 50 MCG/ACT Nasal Suspension Administer into each nostril 2 Sprays in the morning AND 2 Sprays before bedtime. 11.1 mL 5 022 Active Additional Information Patient not taking.Reported on 07/12/2024 Qvar RediHaler 80 MCG/ACT Inhalation Aerosol Breath Activated (Beclomethasone Diprop HFA)Indications: Mild persistent asthma without complication Inhale 2 Puffs by mouth in the morning and 2 Puffs before bedtime. 1 Each 5 023 Active Additional Information Patient not taking.Reported [...] as of this encounter (statuses as of 07/13/2024) Active Problems Problem Noted Date Diagnosed Date [...] as of this encounter (statuses as of 07/13/2024) Resolved Problems Problem Noted Date Diagnosed Date Resolved Date Body mass index (BMI) of 40. 0 to 44.9 in adult 08/02/2022 11/10/2023 Overview: Per Obesity protocol documented as of this encounter (statuses as of 07/13/2024) Immunizations Name Administration Dates Next Due COVID-19 [...] encounter Miscellaneous Notes * Telephone Encounter - Patricia Grimaldo LPN [...] from this? * Telephone Encounter - Ximena Hughes, [facility] - 03/14/2024 9:43 AM EDT Contacted the [...] 08/01/2024 5:15 PM EDT Office Visit Gynecology/Obstetrics [facility] [address] [place] [address] Angela Ayers PA-C [address] [place] [address] 08/23/2024 9:40 AM EDT Office Visit Family Practice [facility] [address] [place] [address] Venus Carbajal MD [address] [place] [address] Scheduled Procedures Name Priority Associated Diagnoses Date/Ti [...] filedocumented as of this encounter Care Teams Energy Operations Vice President Relationship Specialty Start Date End Date Venus Carbajal MD [address] [place] [address] PCP - General Internal Medicine 10/05/21 documented as of this encounter
--- OUTSIDE RECORDS SUMMARY | 2024-09-14 02:21 | External Medical Summary ---
Author Name Unknown Address Unknown Organization [id number]:[facility] [place] [address] [facility] [address] Laboratory Report Ordering Provider Test Date Status PHU KHALIL 08/02/2024 09:33:25 Final Observation Date Value Abnormality Reference (Units ) Status TSH 08/02/2024 09:33:25 2.61 0.27-4.20 (uIU/mL) Final Performing Location [facility] [address] [facility] [address]
--- OUTSIDE RECORDS SUMMARY | 2024-09-14 02:21 | External Medical Summary ---
Author Name Unknown Address Unknown Organization [id number][facility] [address] [place] [address] Laboratory Report Ordering Provider Test Date Status PHU KHALIL 08/02/2024 09:33:25 Final Observation Date Value Abnormality Reference (Units ) Status WBC, Total 08/02/2024 09:33:25 5.41 4.00-10.8 0 (K/uL) Final RBC 08/02/2024 09:33:25 4.80 3.85-5.15 (M/uL) Final Hemoglobin 08/02/2024 09:33:25 14.5 12.0-15.3 (g/dL) Final HCT 08/02/2024 09:33:25 43.2 36.0-45.2 (%) Final MCV 08/02/2024 09:33:25 90.0 81.5-97.5 (fL) Final MCH 08/02/2024 09:33:25 30.2 27.0-34.0 (pg) Final MCHC 08/02/2024 09:33:25 33.6 32.0-36.0 (g/dL) Final RDW 08/02/2024 09:33:25 12.5 11.5-15.5 (%) Final Platelets 08/02/2024 09:33:25 253 140-400 (K /uL) Final MPV 08/02/2024 09:33:25 10.3 6.6-11.1 ( fL) Final Performing Location [facility] - [address] [place] [address]
--- OUTSIDE RECORDS SUMMARY | 2024-09-14 02:21 | External Medical Summary | Summary of Care ---
Author Name Unknown Organization [facility] Address [address] [place] [address] Phone [phone] Care Team Providers Care Plant Utilities Engineer Name Role Phone Venus Carbajal MD Primary Care Provider Reason for Visit * Reason Comments Follow Up No noticeable differ ence with Prozac dose increase. Encounter Details Date Type Department Care Team (Late st Contact Info) Description 08/23/2024 9:40 AM EDT Office Visit Family Practice [facility] [address] [facility] [place] [id number] Venus Carbajal MD [address] [facility] [place] [id number] Moderate recurrent major depression (HCC)*; PTSD (post-traumatic stress disorder); BRITANY (generalized anxiety disorder); Mild binge-eating disorder; Body mass index (BMI) of 40.0 to 44.9 in adult (HCC) Allergies No known active allergiesdocumented as of this encounter (statuses as of 08/23/2024) Medications Azelastine HCl 0.1 % Nasal Solution Administer into nostril 1 [place] in the morning AND 1 [place] before bedtime. 30 mL 12 10/06/19 22 Active Fluticasone Propionate 50 MCG/ACT Nasal Suspension Administer into each nostril 2 Sprays in the morning AND 2 Sprays before bedtime. 11.1 mL 5 10/06/19 22 Active Qvar RediHaler 80 MCG/ACT Inhalation Aerosol Breath Activated (Beclomethasone Diprop HFA)Indications: Mild persistent asthma without complication Inhale 2 Puffs by mouth in the morning and 2 Puffs before bedtime. 1 Each 5 06/24/19 23 Active Norethindrone 0.35 MG Oral TabletIndication s:Excessive bleeding in premenopausal period Take 1 Tablet by mouth in the morning. 84 Tablet 4 11/01/19 24 Active Albuterol Sulfate HFA 108 (90 Base) MCG/ACT Inhalation Aerosol SolutionIndicati ons:Mild persistent asthma without complication Inhale 2 Puffs by mouth every 6 hours as needed for Shortness of Breath or Cough. 8 g 1 04/03/20 24 Active buPROPion HCl ER (XL) 150 MG Oral Tablet Extended Release 24 Hour (Wellbutrin XL)Indications:M oderate recurrent major depression (HCC),Mild binge-eating disorder Take 1 Tablet by mouth in the morning. 30 Tablet 5 08/24/19 25 Active FLUoxetine HCl 20 MG Oral Capsule (PROzac)Indicati ons:PTSD (post-traumatic stress disorder),BRITANY (generalized anxiety disorder),Mild binge-eating disorder Take 2 Capsules by mouth in the morning. Every morning.. 60 Capsule 5 08/24/19 25 Active Ozempic (1 MG/DOSE) 4 MG/3ML Subcutaneous Solution Pen-injector (Semaglutide (1 MG/DOSE))Indicat ions:History of gestational diabetes,Elevate d blood pressure reading without diagnosis of hypertension,Bod y mass index (BMI) of 40.0 to 44.9 in adult (HCC) Inject 1 mg under the skin once a week. 3 mL 5 02/12/20 24 2024 Discontinued(M edication List Clean Up) FLUoxetine HCl 20 MG Oral Capsule (PROzac)Indicati ons:PTSD (post-traumatic stress disorder),BRITANY (generalized anxiety disorder),Mild binge-eating disorder Take 3 Capsules by mouth in the morning. Every morning.. 90 Capsule 5 07/12/19 25 2024 Discontinued documented as of this encounter (statuses as of 08/23/2024) Active Problems Problem Noted Date Diagnosed Date [...] as of this encounter (statuses as of 08/23/2024) Resolved Problems Problem Noted Date Diagnosed Date Resolved Date Body mass index (BMI) of 40. 0 to 44.9 in adult 08/02/2022 11/10/2023 Overview: Per Obesity protocol documented as of this encounter (statuses as of 08/23/2024) Immunizations Name Administration Dates Next Due COVID-19 [...] Date Smoking Tobacco: Never Smokeless Tobacco: Never Tobacco Cessation:Counseling Given: Not Answered Alcohol Use Standard Drinks/Week Comments Not Currently [...] PM EDT documented as of this encounter Last Filed Vital Signs Vital Sign Reading Time Taken Comments Blood Pressure 122/88 08/23/2024 9:22 AM EDT Pulse 85 08/23/2024 9:22 AM EDT Temperature - - Respiratory Rate - - Oxygen Saturation 98% 08/23/2024 9:22 AM EDT Inhaled Oxygen Concentration - - Weight 116.3 kg (256 lb 6.4 oz) 08/23/2024 9:22 AM EDT Height - - Body Mass Index 40.76 08/01/2024 4:56 PM EDT documented in this encounter Progress Notes * Venus Carbajal MD - 08/23/2024 9:33 AM EDT Images from the original note were not included. Subjective Jayshree Garcia is a 44 year old female that presents for Follow Up (No noticeable difference with Prozac dose increase. ) History of Present Illness Jayshree Garcia is a 44 year old female who presents for follow-up of medication adjustments for anxiety, depression and PTSD. Prozac increase to 60 mg 6 weeks ago. No big change in symptoms. Bothersome residual symptoms include racing anxious thoughts, and tendency to nap and “cocoon." Social activities are still very stressful. Is using all her coping strategies from therapy with Yolanda Dejesus. Vivid dreams are more intense on the higher dose, weird but not bothersome. May have use Zoloft many many years ago, but otherwise Prozac is her 1st medication. No family history of seizures. She denies any history of seizures. Sleep study - repeated study in March, awaiting results Unable to continue getting Ozempic paid for, food noise is back. Current medications and allergies reviewed. Past medical history and problem list reviewed. Objective BP 122/88 (BP Site: Left Arm, BP Position: Sitting, BP Cuff Size: Regular) | Pulse 85 | Wt 256 lb 6.4 oz (116.3 kg) | LMP 07/10/2024 | SpO2 98% | BMI 40.76 kg/m² | BSA 2.34 m² BP Readings from Last 3 Encounters: 08/23/24 122/88 08/01/24 112/82 07/12/24 117/92 Wt Readings from Last 3 Encounters: 08/23/24 256 lb 6.4 oz (116.3 kg) 08/01/24 260 lb (117.9 kg) 07/12/24 250 lb 6.4 oz (113.6 kg) Physical Exam Vitals and nursing note reviewed. Constitutional: Appearance: Normal appearance. She is not ill-appearing. Skin: Coloration: Skin is not jaundiced or pale. Neurological: Mental Status: She is alert. Psychiatric: Mood and Affect: Mood normal. Behavior: Behavior normal. Results reviewed : TSH and CBC Assessment and Plan Assessment & Plan Depression/BRITANY/PTSD - decrease Prozac to 40 mg daily - Add Wellbutrin to address depressive symptoms. May also be helpful with eating. Side effects reviewed. Mild Binge-Eating Disorder Increased 'food noise' post-Ozempic discontinuation, no significant behavioral changes. - Monitor eating patterns, re-evaluate medication if symptoms worsen. Moderate recurrent major depression (HCC) - buPROPion HCl ER (XL) 150 MG Oral Tablet Extended Release 24 Hour (Wellbutrin XL); Take 1 Tablet by mouth in the morning. PTSD (post-traumatic stress disorder) - FLUoxetine HCl 20 MG Oral Capsule (PROzac); Take 2 Capsules by mouth in the morning. Every morning.. BRITANY (generalized anxiety disorder) - FLUoxetine HCl 20 MG Oral Capsule (PROzac); Take 2 Capsules by mouth in the morning. Every morning.. Mild binge-eating disorder - buPROPion HCl ER (XL) 150 MG Oral Tablet Extended Release 24 Hour (Wellbutrin XL); Take 1 Tablet by mouth in the morning. - FLUoxetine HCl 20 MG Oral Capsule (PROzac); Take 2 Capsules by mouth in the morning. Every morning.. Body mass index (BMI) of 40.0 to 44.9 in adult (HCC) Wrap-Up I spent a total of 20-29 minutes (exact time 22 mins) on the date of service in preparation, delivery, and documentation of the care provided to Jayshree Garcia excluding any time spent in the performance of separately billed services. Text in this note was generated using an ambient documentation service. I discussed the use of a device to record and summarize our discussion today. All persons present during the encounter consented to its use. documented in this encounter Plan of Treatment Upcoming Encounters Date Type Department Care Team (Late st Contact Info) Description 12/07/2024 8:40 AM EDT Office Visit Family Practice [facility] [address] [place] [address] Venus Carbajal MD [address] [place] [id number] Scheduled Procedures Name Priority Associated Diagnoses Date/Ti [...] as of this encounter Visit Diagnoses Diagnosis Moderate recurrent major depression (HCC)- Primary Major depressive disorder, recurrent episode, moderate PTSD (post-traumatic stress disorder) Posttraumatic stress disorder BRITANY (generalized anxiety disorder) Generalized anxiety disorder Mild binge-eating disorder Body mass index (BMI) of 40.0 to 44.9 in adult (HCC) documented in this encounter Care Teams Plant Utilities Engineer Relationship Specialty Start Date End Date Venus Carbajal MD [address] [place] [address] PCP - General Internal Medicine 10/05/21 documented as of this encounter
--- OUTSIDE RECORDS SUMMARY | 2024-09-14 02:21 | External Medical Summary | Summary of Care ---
Author Name Unknown Organization [facility] Address [address] [place] [address] Phone [phone] Care Team Providers Care Risk Specialist Name Role Phone Venus Carbajal MD Primary Care Provider Reason for Visit * Reason Onset Date Comments Medication Pre-auth 07/16/2024 Encounter Details Date Type Department Care Team (Late st Contact Info) Description 07/16/2024 Telephone Family Practice [facility] [address] [place] [address] Venus Carbajal MD [address] [place] [address] Medication Pre-auth (/) Allergies No known active allergiesdocumented as of this encounter (statuses as of 07/19/2024) Medications Azelastine HCl 0.1 % Nasal Solution Administer into nostril 1 [place] in the morning AND 1 [place] before bedtime. 30 mL 12 2 Active [...] (BMI) of 40.0 to 44.9 in adult ([facility]) Inject 1 mg under the [...] as of this encounter (statuses as of 07/19/2024) Active Problems Problem Noted Date Diagnosed Date [...] as of this encounter (statuses as of 07/19/2024) Resolved Problems Problem Noted Date Diagnosed Date Resolved Date Body mass index (BMI) of 40. 0 to 44.9 in adult 08/02/2022 11/10/2023 Overview: Per Obesity protocol documented as of this encounter (statuses as of 07/19/2024) Immunizations Name Administration Dates Next Due COVID-19 [...] No 10/27/2023 Does the household have a [facility] source of income? (Household - for ages [...] encounter Miscellaneous Notes * Telephone Encounter - Evelyn Alejandra, MED ASSIST - 07/18/2024 9:33 AM EST Authorization denied. * Telephone Encounter - Evelyn Alejandra MED ASSIST - 07/16/2024 3:02 PM EST Prior auth for Chad submitted on CoverMyMeds with diagnosis of binge eating disorder. Will awaitresponse. (Lucas: [id number]) documented in this encounter Plan of Treatment Upcoming Encounters Date Type Department Care Team (Late st Contact Info) Description 08/01/2024 5:15 PM EDT Office Visit Gynecology/Obstetrics [facility] [address] [place] [address] Angela Ayers PA-C [address] [place] [phone] 08/23/2024 9:40 AM EDT Office Visit Family Practice [facility] [address] [place] [address] Venus Carbajal MD [address] [place] [address] Scheduled Procedures Name Priority Associated Diagnoses Date/Ti [...] filedocumented as of this encounter Care Teams Risk Specialist Relationship Specialty Start Date End Date Venus Carbajal MD [address] [place] [address] PCP - General Internal Medicine 10/05/21 documented as of this encounter
--- OUTSIDE RECORDS SUMMARY | 2024-09-14 02:21 | External Medical Summary | Summary of Care ---
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 Encounter Details Date Type Department Care Team (Latest Contact Info) Description 08/01/2024 5:15 PM EDT Office Visit Gynecology/Obstetric s Mirian An [address] [facility] [place] [address] Angela Ayers PA-C [address] [facility] [address] Encounter for gynecological examination with abnormal finding*; Abnormal uterine bleeding; Encounter for screening mammogram for malignant neoplasm of breast Allergies No known active allergiesdocumented as of this encounter (statuses as of 08/02/2024) Medications Azelastine HCl 0.1 % Nasal Solution Administer into nostril 1 Rebecca in the morning AND 1 Rebecca before bedtime. 30 mL 12 2 Active Additional Information Patient not taking.Reported on 08/01/2024 Fluticasone Propionate 50 MCG/ACT Nasal Suspension Administer into each nostril 2 Sprays in the morning AND 2 Sprays before bedtime. 11.1 mL 5 2 Active Additional Information Patient not taking.Reported on 08/01/2024 Qvar RediHaler 80 MCG/ACT Inhalation Aerosol Breath Activated (Beclomethasone Diprop HFA)Indications:M ild persistent asthma without complication Inhale 2 Puffs by mouth in the morning and 2 Puffs before bedtime. 1 Each 5 3 Active Additional Information Patient not taking.Reported on 08/01/2024 Norethindrone 0.35 MG Oral TabletIndications :Excessive bleeding [...] a week. 3 mL 5 4 Active Additional Information Patient not taking.Reported on 08/01/2024 Albuterol Sulfate HFA 108 (90 Base) MCG/ACT Inhalation Aerosol SolutionIndicatio ns:Mild persistent asthma without complication Inhale 2 Puffs by mouth every 6 hours as needed for Shortness of Breath or Cough. 8 g 1 4 Active Additional Information Patient not taking.Reported on 08/01/2024 FLUoxetine HCl 20 MG Oral Capsule (PROzac)Indicatio ns:PTSD (post-traumatic stress disorder),BRITANY (generalized anxiety disorder),Mild binge-eating disorder Take 3 Capsules by mouth in the morning. Every morning.. 90 Capsule 5 5 Active documented as of this encounter (statuses as of 08/02/2024) Active Problems Problem Noted Date Diagnosed Date [...] as of this encounter (statuses as of 08/02/2024) Resolved Problems Problem Noted Date Diagnosed Date Resolved Date Body mass index (BMI) of 40. 0 to 44.9 in adult 08/02/2022 11/10/2023 Overview: Per Obesity protocol documented as of this encounter (statuses as of 08/02/2024) Immunizations Name Administration Dates Next Due COVID-19 [...] No 10/27/2023 Does the household have a [facility] source of income? (Household - for ages [...] Sign Reading Time Taken Comments Blood Pressure 112/82 08/01/2024 4:56 PM EDT Pulse - - Temperature - - Respiratory Rate - - Oxygen Saturation - - Inhaled Oxygen Concentration - - Weight 117.9 kg (260 lb) 08/01/2024 4:56 PM EDT Height 168.9 cm (5' 6.5") 08/01/2024 4:56 PM EDT Body Mass Index 41.34 08/01/2024 4:56 PM EDT documented in this encounter Progress Notes * Angela Ayers PA-C - 08/01/2024 5:15 PM EDT CC: Annual exam HPI: The patient is a 43 year old female here for her annual exam. Complaints: discuss periods with POP Had ultrasound and benign EMB in 2021 d/t HMB. Cycles regular every 28 days. Placed on POP in 2022.Pt states periods were initially fine. However, have become more irregular. Cycles averaging every 23 days. Have also had cycles up to 43 days. Hard to determine when they will happen. Days 1, 5-7 normal/light flow. Days 2-4 heavy. Passing clots size of three quarters put together. No pain. Wears menstrual underwear that can hold 5 pads worth and has to change about every 3 hours on heaviest days. Feels fatigue around her periods. Patient last menstrual period 07/10/2024. Sexually active: yes New partner: no Her control method: vasectomy She denies any cramps, postcoital bleeding, pelvic pain or dyspareunia. She denies any vaginal discharge, urinary symptoms or changes in GI habits. She has been doing her BSE occasionally. Denies breast concerns. Mammogram: 01/2024, left breast screened negative. Had call back right breast which she completed later that month and negative. Due for bilateral screening mammogram 01/2025. Last pap smear: NILM, neg HPV (2021) Abnormal pap history: denies STD testing: declines Colon cancer screening: Had colonoscopy 2022 Medications: Current Outpatient Medications Medication Sig Dispense Refill Azelastine HCl 0.1 % Nasal Solution Administer into nostril 1 Rebecca in the morning AND 1 Rebecca before bedtime. (Patient not taking: Reported on 07/12/2024) 30 mL 12 Fluticasone Propionate 50 MCG/ACT Nasal Suspension Administer into each nostril 2 Sprays in the morning AND 2 Sprays before bedtime. (Patient not taking: Reported on 07/12/2024) 11.1 mL 5 Qvar RediHaler 80 MCG/ACT Inhalation Aerosol Breath Activated (Beclomethasone Diprop HFA) Inhale 2 Puffs by mouth in the morning and 2 Puffs before bedtime. (Patient not taking: Reported on 11/17/2023) 1 Each 5 Norethindrone 0.35 MG Oral Tablet Take 1 Tablet by mouth in the morning. 84 Tablet 4 Ozempic (1 MG/DOSE) 4 MG/3ML Subcutaneous Solution Pen-injector (Semaglutide (1 MG/DOSE)) Inject 1 mg under the skin once a week. 3 mL 5 Albuterol Sulfate HFA 108 (90 Base) MCG/ACT Inhalation Aerosol Solution Inhale 2 Puffs by mouth every 6 hours as needed for Shortness of Breath or Cough. 8 g 1 FLUoxetine HCl 20 MG Oral Capsule (PROzac) Take 3 Capsules by mouth in the morning. Every morning..90 Capsule 5 No current facility-administered medications for this visit. Allergies: Review of patient's allergies indicates: No Known Allergies Patient Active Problem List Diagnosis Depressive disorder COVID-19 virus infection Allergies History of gestational diabetes Binge eating disorder Polyp of colon Mild persistent asthma without complication PTSD (post-traumatic stress disorder) BRITANY (generalized anxiety disorder) Past Medical History: Diagnosis Date Allergies 11/09/2021 COVID-19 virus infection 11/09/2021 10/20/21 Depressive disorder 10/16/2021 Migraine allergy related, occasional vision change preceeding OB History Para Term AB Living 4 3 3 1 3 SAB IAB Ectopic Multiple Live Births 1 3 # Outcome Date GA Lbr Porfirio/2nd Weight Sex Type Anes PTL Lv 4 Term 3 Term 2 Term 1 SAB Past Surgical History: Procedure Laterality Date COLONOSCOPY, DIAGNOSTIC (RECTUM) 10/25/2022 hemorrhoids/diverticulosis/biopsies show adenomatous polyps/recall 3 years/COLONOSCOPY FLEXIBLE PROXIMAL DIAGNOSTIC performed by Abida Narayan, DO at [facility] HEMORRHOID REMOVAL, THROMBOSED Family History Problem Relation Name Age of Onset Asthma Mother Velma Dick Skin cancer Mother Velma Dick Lung cancer Father Parveen Thakkar Hypertension Sister Asthma Brother Allergies Brother Anxiety Disorder Brother Stroke Grandmother (Maternal) Anju Flynn Cancer Grandfather (Maternal) Musa Flynn Diabetes Grandmother (Paternal) Randa Thakkar Hypertension Grandmother (Paternal) Randa Thakkar Hypertension Grandfather (Paternal) Autism Daughter ADD / ADHD Daughter Anxiety Disorder Daughter ADD / ADHD Daughter Breast Cancer No significant family history Review of Systems: ROS negative apart from HPI OBJECTIVE: BP 112/82 | Ht 1.689 m (5' 6.5") | Wt 117.9 kg (260 lb) | LMP 07/10/2024 | BMI 41.34 kg/m² | BSA 2.35 m² General: awake, alert, and oriented x 3, normal affect, no acute distress Skin: color, texture normal Head: normocephalic, atraumatic Neck: supple, thyroid normal size, non-tender Cardiac: regular rate and rhythm Lungs: clear to auscultation Abdomen: soft, non-tender, non-distended Extremities: no edema Neuro: no focal motor/sensory deficits Breasts: no skin changes, no nipple retraction or dimpling, no nipple discharge or bleeding, no axillary or supraclavicular lymphadenopathy, normal to palpation without dominant masses Pelvic exam: External Genitalia/Vulva: anatomy is normal, no significant redness of labia, no discharge on vulvar tissues, ulcers are absent, no condylomatous lesions Urethra meatus: normal Vagina: vaginal tissues are not inflamed, normal color and texture, physiologic discharge Cervix: without lesions, no cervicitis, no discharge from os, no cervical motion tenderness. Uterus: normal size, mobile, non-tender. Adnexa: non-tender bilaterally, no palpable pelvic masses Rectum: deferred Director Process Improvement Documentation Provider requested apprentice instrument technician. Name of apprentice instrument technician: Aliyah Valdes RN EXAM US PELVIS TRANS-VAGINAL NON-OB-10/28/2021 11:34 am HISTORY missed period, heavier periods COMPARISON None TECHNIQUE Transvaginal pelvic ultrasound FINDINGS The patient's LMP is 10/24/2021. The uterus measures 11.1 x 4.1 x 4.9 cm. The endometrial stripe measures 3.6 mm. The uterus is otherwise not well seen. The right ovary measures 2.1 x 2.8 x 2.2 cm. The right ovary is not well seen. The left ovary measures 2.3 x 2.9 x 1.7 cm. There are multiple small left ovarian follicles. IMPRESSION IMPRESSION No definite abnormality noted on this exam. The evaluation of the uterus and the right ovary is limited. 12/31/2021: A. Endometrium, biopsy: Proliferative-phase endometrium. CD138 immunostain is negative for stromal plasma cells. ASSESSMENT/PLAN: Encounter for gynecological examination with abnormal finding (Primary) Counseled patient on ACOG recommendations regarding pap smears. Recommended pap smear every 3-5 years depending on age and co-testing done as long as pap smears are normal. Pap smears should be more frequent if abnormal pap smears occur. Counseled patient that she should return to the office for annual exam, including pelvic exam every year. Pap smear collected. Counseled on self breast awareness. Notify office right away if any concerns. Recommended mammogram annually unless indicated sooner. Mammogram due Jan 2025. - ENGINEER/CONDUCTOR PAP SCREEN; Future; Expected date: 08/01/2024 - ENGINEER/CONDUCTOR PAP SCREEN Abnormal uterine bleeding Recommended labs and repeat ultrasound as last 2021 Discussed need for return appointment, will await labs and imaging Possible need for repeat EMB Briefly discussed options medical therapy discussed: pills but has failed, injection, implants (Nexplanon and IUD). Reviewed Mirena IUD and FDA approval for HMB. On depot in past as teen did not get period on it and happy with it. Would consider again. Did not have weight gain with it, we discussedpotential weight gain that can occur. Discussed surgical management options with ablation and hysterectomy. Advised for this would need follow up physician to discuss further. Pt will consider options while completing work up. - US PELVIS TRANS-VAGINAL NON-OB - TSH WITH FREE T4 IF INDICATED; Future; Expected date: 08/01/2024 - CBC Encounter for screening mammogram for malignant neoplasm of breast - MAMMOGRAM SCREENING CHERIE BILATERAL; Future; Expected date: 01/21/2025 Follow Up: Return if symptoms worsen or fail to improve, for Clinic Visit. | For: Clinic Visit | Check-out note: Please schedule ultrasound Angela Ayers PA-C PCP: CHRISTOFER CARBAJAL [address] [place] [address] [phone] documented in this encounter Nursing Notes * Aliyah Valdes RN - 08/01/2024 4:58 PM EDT Patient identified Jayshree Garcia by name and date of . Patient here for yearly exam. Complaints: heavy periods Last pap: 09/2021 neg and neg Last Mammogram: 01/2024 Last Dexa: n/a Last Colonoscopy: 2022 Type of Contraception: pill Pt here for chlamydia screen. no Have you heard about the Gardasil Vaccine? no Would you be interested in discussing this with your provider? no Does the patient have an advance directed? No, Advance Directive brochure offered, patient declined. My [facility] is a way you can talk to your provider online through e-mail. May I activate it for you? ALREADY ACTIVE Do you need any refills while you are here? no Aliyah Valdes RN 08/01/2024 4:58 PM documented in this encounter Plan of Treatment Upcoming Encounters Date Type Department Care Team (Late st Contact Info) Description 08/10/2024 10:00 AM EDT PulmDiagnostic Sleep Lab [facility] Walkers [address] [place] [address] [facility] Sleep Med Home Study [facility] [address] [place] [address] 08/21/2024 8:30 AM EDT [facility] [address] [place] [phone] 08/23/2024 9:40 AM EDT Office Visit Family Practice [facility] [address] [place] [address] Christofer Carbajal MD [address] [place] [address] Pending Results Name Type Priority Associated Diagnoses Date /Time ENGINEER/CONDUCTOR PAP SCREEN Pathology Routine Encounter for gynecological examination with abnormal finding 08/01/2024 5:43 PM EDT TSH WITH FREE T4 IF INDICATED Lab Routine Abnormal uterine bleeding 08/02/2024 9:33 AM EDT Scheduled Orders Name Type Priority Associated Diagnoses Orde r Schedule MAMMOGRAM SCREENING CHERIE BILATERAL Medical Imaging Routine Encounter for screening mammogram for malignant neoplasm of breast Expected: 01/21/2025, Expires: 09/01/2025 ENGINEER/CONDUCTOR PAP SCREEN Pathology Routine Encounter for gynecological examination with abnormal finding Expected: 08/01/2024, Expires: 09/01/2025 US PELVIS TRANS-VAGINAL NON-OB Medical Imaging Routine Abnormal uterine bleeding Ordered: 08/01/2024 TSH WITH FREE T4 IF INDICATED Lab Routine Abnormal uterine bleeding Expected: 08/01/2024, Expires: 08/01/2025 Scheduled Procedures Name Priority Associated Diagnoses Date/Ti [...] Not on filedocumented as of this encounter Procedures Procedure Name Priority Date/Time Associated Diagnosis Comments CBC Routine 08/02/2024 9:33 AM EDT Abnormal uterine bleeding documented in this encounter Results * CBC (08/02/2024 9:33 AM EDT) WBC 5.41 4.00 - 10.80 K/uL 08/02/2024 9:56 AM EDT [facility]10 RBC 4.80 3.85 - 5.15 M/uL 08/02/2024 9:56 AM EDT [facility]10 HGB 14.5 12.0 - 15.3 g/dL 08/02/2024 9:56 AM EDT [facility] HCT 43.2 36.0 - 45.2 % 08/02/2024 9:56 AM EDT [facility] MCV 90.0 81.5 - 97.5 fL 08/02/2024 9:56 AM EDT [facility] MCH 30.2 27.0 - 34.0 pg 08/02/2024 9:56 AM EDT [facility]10 MCHC 33.6 32.0 - 36.0 g/dL 08/02/2024 9:56 AM EDT [facility] RDW 12.5 11.5 - 15.5 % 08/02/2024 9:56 AM EDT [facility]10 PLT 253 140 - 400 K/uL 08/02/2024 9:56 AM EDT [facility] MPV 10.3 6.6 - 11.1 fL 08/02/2024 9:56 AM EDT [facility] Blood Venous blood specimen / Unknown Venipuncture / Unknown 08/02/2024 9:33 AM EDT 08/02/2024 9:33 AM EDT Angela Ayers PA-C LAB BLOOD ORDERABLES Final R esult [facility] [place] [facility]10 [address] [place] [address] documented in this encounter Visit Diagnoses Diagnosis Encounter for gynecological examination with abnormal finding- Primary Routine gynecological examination Abnormal uterine bleeding Unspecified disorder of menstruation and other abnormal bleeding from female genital tract Encounter for screening mammogram for malignant neoplasm of breast Other screening mammogram documented in this encounter Care Teams Hourly Shift Manager Relationship Specialty Start Date End Date Christofer Carbajal MD [address] [place] [address] PCP - General Internal Medicine 10/05/21 documented as of this encounter
--- OUTSIDE RECORDS SUMMARY | 2024-09-14 02:21 | External Medical Summary | Summary of Care ---
Author Name Unknown Organization [facility] Address [address] [place] [address] Phone [phone] Care Team Providers Care Allergist/Immunologist Name Role Phone Venus Carbajal MD Primary Care Provider Reason for Visit * Reason Onset Date Comments Sleep Apnea Device 03/14/2024 Re: WatchPAT Encounter Details Date Type Department Care Team (Late st Contact Info) Description 03/14/2024 Telephone Sleep Lab [facility] An [address] [place] [address] Tarah Young CRNP [address] [place] [address] Sleep Apnea Device (Re: WatchPAT) Allergies No known active allergiesdocumented as of this encounter (statuses as of 07/17/2024) Medications Azelastine HCl 0.1 % Nasal Solution Administer into nostril 1 Stow in the morning AND 1 Stow before bedtime. 30 mL 12 Active Additional [...] as of this encounter (statuses as of 07/17/2024) Active Problems Problem Noted Date Diagnosed Date [...] as of this encounter (statuses as of 07/17/2024) Resolved Problems Problem Noted Date Diagnosed Date Resolved Date Body mass index (BMI) of 40. 0 to 44.9 in adult 08/02/2022 11/10/2023 Overview: Per Obesity protocol documented as of this encounter (statuses as of 07/17/2024) Immunizations Name Administration Dates Next Due COVID-19 [...] encounter Miscellaneous Notes * Telephone Encounter - Jayshree Weller OSA [...] this? * Telephone Encounter - Ximena Hughes, [facility] - 03/14/2024 9:43 AM EDT Contacted the [...] 08/01/2024 5:15 PM EDT Office Visit Gynecology/Obstetrics [facility] [address] [place] [address] Angela Ayers PA-C [address] [place] [address] 08/23/2024 9:40 AM EDT Office Visit Family Practice [facility] [address] [place] [address] Venus Carbajal MD [address] [place] [address] Scheduled Procedures Name Priority Associated Diagnoses Date/Ti [...] filedocumented as of this encounter Care Teams Allergist/Immunologist Relationship Specialty Start Date End Date Venus Carbajal MD [address] [place] [address] PCP - General Internal Medicine 10/05/21 documented as of this encounter
--- OUTSIDE RECORDS SUMMARY | 2024-09-14 02:21 | External Medical Summary | Summary of Care ---
Author Name Unknown Organization [facility] Address [address] [place] [address] Phone [phone] Care Team Providers Care Spot Billing Clerk Name Role Phone Venus Carbajal MD Primary Care Provider Reason for Visit * Reason Comments Sleep Problems * Precert (Within 10 days (routine)) - Authorized Specialty Diagnoses / Procedures Referred By Contac t Referred To Contact Sleep Disorders Diagnoses Loud snoring Bruxism Non-restorative sleep Sleep apnea, unspecified type Procedures TIMED SLEEP STUDY, UNATTEND, HR/O2 SAT/RESP Tarah Young CRNP [address] [facility] [address] Phone: tel: fax: Referral ID Status Reason Start Date Expiration Date V isits Requested Visits Authorized [id number] Authorized Precert 07/23/2024 10/25/2024 [id number] Encounter Details Date Type Department Care Team (Latest Contact Info) Description 08/10/2024 10:00 AM EDT PulmDiagnostic Sleep Lab Jairo An [address] [facility] [place] [address] An, Sleep Med Home Study [facility] [address] [facility] [address] Sleep apnea, unspecified type* Allergies No known active allergiesdocumented as of this encounter (statuses as of 08/23/2024) Medications Azelastine HCl 0.1 % Nasal Solution Administer into nostril 1 Shepherd in the morning AND 1 Shepherd before bedtime. 30 mL 12 2 Active [...] or Cough. 8 g 1 4 Active documented as of this encounter (statuses [...] No 10/27/2023 Does the household have a [employer] source of income? (Household - for ages [...] PM EDT documented as of this encounter Progress Notes * Brook Bee MD - 08/23/2024 12:38 PM EDT Images from the original note were not included. documented in this encounter Plan of Treatment Upcoming Encounters Date Type Department Care Team (Late st Contact Info) Description 12/07/2024 8:40 AM EDT Office Visit Family Practice [facility] [address] [place] [address] Venus Carbajal MD [address] [place] [address] Scheduled Orders Name Type Priority Associated Diagnoses [...] as of this encounter Visit Diagnoses Diagnosis Sleep apnea, unspecified type- Primary documented in this encounter Care Teams Spot Billing Clerk Relationship Specialty Start Date End Date Venus Carbajal MD [address] [place] [address] PCP - General Internal Medicine 10/05/21 documented as of this encounter
--- OUTSIDE RECORDS SUMMARY | 2024-09-14 02:21 | External Medical Summary ---
Author Name Unknown Address Unknown Organization K01:LABORATORY [address] [address] Laboratory Report Ordering Provider Test Date Status PHU KHALIL 08/01/2024 17:43:00 Final Observation Date Value Abnormality Reference (Units ) Status Human papilloma virus E6+E7 mRNA [Presence] in Cervix by RICHARD with probe detection 08/01/2024 17:43:00 Negative Not Applicable Final No high/intermediate-risk Hu man Papillomavirus (HPV E6/E7 messenger RNA) detected by nucleic acid amplification.

This assay looks for high/intermediate risk Human Papillomavirus (HPV E6/E7 messenger RNA) by nucleic acid amplification. This assay includes the qualitative detection of HPV types 16,18,31,33,35,39,45,51,52,56,58,59,66 and 68 from cervical specimens.
This assay has been FDA cleared for Thin prep collection vials.
This assay has not been approved for use as a primary screening test for HPV and should be tested in conjunction with a PAP screen.
If collected utilizing a Surepath vial, the collection and specimen preparation of this test was developed, and its performance characteristics determined by [facility]. It has not been cleared or approved by the U.S. Food and Drug Administration (FDA). The FDA has determined that such clearance or approval is not necessary.
This assay has been performed at [facility], [address] [place] [address], [place]. [address]. Performing Location LABORATORY [address] [place]. [facility] [address]
--- OUTSIDE RECORDS SUMMARY | 2024-09-14 02:21 | External Medical Summary | Summary of Care ---
Author Name Unknown Organization [facility] Address [address] [place] [address] Phone [phone] Care Team Providers Care Embedded Software Programmer Name Role Phone Venus Carbajal MD Primary Care Provider Reason for Visit * Reason Comments Outpatient Testing Encounter Details Date Type Department Care Team (Late st Contact Info) Description 08/02/2024 9:30 AM EDT Laboratory Laboratory, [facility] [address] [place] [phone] [facility] [address] [place] [address] Abnormal uterine bleeding Allergies No known active allergiesdocumented as of this encounter (statuses as of 08/02/2024) Medications Azelastine HCl 0.1 % Nasal Solution Administer into nostril 1 Gary in the morning AND 1 Gary before bedtime. 30 mL 12 2 Active [...] PulmDiagnostic Sleep Lab Jairo An [address] [place] [address] [facility] Sleep Med Home Study [facility] [address] [place] [address] 08/21/2024 8:30 AM EDT [facility] [address] [place] [phone] 08/23/2024 9:40 AM EDT Office Visit [facility] [address] [place] [address] Venus Carbajal MD [address] [place] [address] Pending Results Name Type Priority Associated Diagnoses Date /Time TSH WITH FREE T4 IF INDICATED Lab Routine Abnormal uterine bleeding 08/02/2024 9:33 AM EDT Scheduled Procedures Name Priority Associated Diagnoses Date/Ti [...] as of this encounter Visit Diagnoses Diagnosis Abnormal uterine bleeding Unspecified disorder of menstruation and other abnormal bleeding from female genital tract documented in this encounter Care Teams Embedded Software Programmer Relationship Specialty Start Date End Date Venus Carbajal MD [address] [facility] [place] [address] PCP - General Internal Medicine 10/05/21 documented as of this encounter
--- OUTSIDE RECORDS SUMMARY | 2024-09-14 02:21 | External Medical Summary | Summary of Care ---
Author Name Unknown Organization [facility] Address [address] [place] [address] Phone [phone] Care Team Providers Care Pastoral Assistant Name Role Phone Venus Carbajal MD Primary Care Provider Reason for Visit * Reason Onset Date Comments Sleep Apnea Device 03/14/2024 Re: WatchPAT Encounter Details Date Type Department Care Team (Late st Contact Info) Description 03/14/2024 Telephone Sleep Lab [facility] [address] [place] [address] Tarah Young CRNP [address] [place] [address] Sleep Apnea Device (Re: WatchPAT) Allergies No known active allergiesdocumented as of this encounter (statuses as of 07/13/2024) Medications Azelastine HCl 0.1 % Nasal Solution Administer into nostril 1 [place] in the morning AND 1 [place] before bedtime. 30 mL 12 Active Additional [...] this? * Telephone Encounter - Ximena Hughes, [facility] - 03/14/2024 9:43 AM EDT Contacted the [...] 08/01/2024 5:15 PM EDT Office Visit Gynecology/Obstetrics [facility] [address] [place] [address] Angela Ayers PA-C [address] [place] [address] 08/23/2024 9:40 AM EDT Office Visit Family Practice [facility] [address] [place] [address] Venus Carbajal MD [address] [place] [address] Scheduled Procedures Name Priority Associated Diagnoses Date/Ti [...] filedocumented as of this encounter Care Teams Pastoral Assistant Relationship Specialty Start Date End Date Venus Carbajal MD [address] [address] PCP - General Internal Medicine 10/05/21 documented as of this encounter
--- OUTSIDE RECORDS SUMMARY | 2024-09-14 02:21 | External Medical Summary | Summary of Care ---
Author Name Unknown Organization [facility] Address [address] [place] [address] Phone [phone] Care Team Providers Care Color Paste Mixing Supervisor Name Role Phone Venus Carbajal MD Primary Care Provider Reason for Visit * Reason Onset Date Comments Medication Pre-auth 07/16/2024 Encounter Details Date Type Department Care Team (Late st Contact Info) Description 07/16/2024 Telephone Family Practice [facility] [address] [place] [address] Venus Carbajal MD [address] [place] [address] Medication Pre-auth (/) Allergies No known active allergiesdocumented as of this encounter (statuses as of 07/27/2024) Medications Azelastine HCl 0.1 % Nasal Solution Administer into nostril 1 [place] in the morning AND 1 [place] before bedtime. 30 mL 12 2 Active [...] (BMI) of 40.0 to 44.9 in adult ([facility]) Inject 1 mg under the [...] No 10/27/2023 Does the household have a [facility] source of income? (Household - for [...] of binge eating disorder. Will awaitresponse. (Lucas: [id number]) documented in this encounter Plan of Treatment Upcoming Encounters Date Type Department Care Team (Late st Contact Info) Description 08/01/2024 5:15 PM EDT Office Visit Gynecology/Obstetrics [facility] [address] [place] [address] Angela Ayers PA-C [address] [place] [address] 08/10/2024 10:00 AM EDT PulmDiagnostic Sleep Lab [facility] [address] [place] [address] [facility] Med Home Study [facility] [address] [place] [address] 08/23/2024 9:40 AM EDT Office Visit Family Practice [facility] [address] [place] [address] Venus Carbajal MD [address] [place] [address] Scheduled Procedures Name Priority Associated Diagnoses Date/Ti [...] filedocumented as of this encounter Care Teams Color Paste Mixing Supervisor Relationship Specialty Start Date End Date Venus Carbajal MD [address] [address] PCP - General Internal Medicine 10/05/21 documented as of this encounter
[2024-09-14 02:22] LABS: Basophils # (auto) 0.02 K/uL (0.00-0.20); Basophils % (auto) 0.3 %; Eosinophils % (auto) 1.6 %; Hematocrit (blood only) 40.7 % (37.0-47.0); Hemoglobin 14.2 g/dl (12.0-16.0); Immature Granulocytes # (auto) 0.02 K/uL (0.01-0.20); Immature Granulocytes % (auto) 0.3 %; Lymphocytes # (auto) 1.66 K/uL (1.20-3.40); Lymphocytes % (auto) 26.3 %; Mean Corpuscular Hgb Conc 34.9 g/dL (32.0-36.0); Mean Corpuscular Volume 85.9 fL (80.0-100.0); Mean Platelet Volume 9.7 fL (9.4-12.4); Monocytes # (auto) 0.47 K/uL (0.11-0.59); Monocytes % (auto) 7.5 %; Neutrophils # (auto) 4.03 K/uL (1.40-6.50); Platelet Count 234 K/uL (130-400); RDW Coefficient of Variation 12.1 % (11.5-14.5); RDW Standard Deviation 37.9 fL (36.4-46.3); Red Blood Count 4.74 M/uL (4.20-5.40)
--- OUTSIDE RECORDS SUMMARY | 2024-09-14 02:22 | External Medical Summary | Summary of Care ---
Author Name Unknown Organization [facility] Address [address] [place] [address] Phone [phone] Care Team Providers Care Spa Director Name Role Phone Christofer Carbajal MD Primary Care Provider Reason for Visit * Reason Comments eRx-Medication Refill Encounter Details Date Type Department Care Team (Late st Contact Info) Description 04/27/2024 Refill Family Practice [facility] [address] [place] [address] Christofer Carbajal MD [address] [place] [address] Binge eating disorder; BIRTANY (generalized anxiety disorder) Allergies No known active allergiesdocumented as of this encounter (statuses as of 04/27/2024) Medications Azelastine HCl 0.1 % Nasal Solution Administer into nostril 1 [place] in the morning AND 1 [place] before bedtime. 30 mL 12 10/06/19 22 Active Additional Information Patient taking differently:1 [place] Nasal BID (.AM/PM),Indications: as needed, Reported on 04/03/2024 Fluticasone Propionate 50 MCG/ACT Nasal Suspension Administer into each nostril 2 Sprays in the morning AND 2 Sprays before bedtime. 11.1 mL 5 10/06/19 22 Active Additional Information Patient taking differently:2 Juda Each Nostril BID (.AM/PM),Indications: as needed, Reported on 04/03/2024 Qvar RediHaler 80 MCG/ACT Inhalation Aerosol Breath Activated (Beclomethasone Diprop HFA)Indications: Mild persistent asthma without complication Inhale 2 Puffs by mouth in the morning and 2 Puffs before bedtime. 1 Each 5 06/24/19 23 Active Additional Information Patient not taking.Reported on 04/03/2024 Norethindrone 0.35 MG Oral TabletIndication s:Excessive bleeding in premenopausal period Take 1 Tablet by mouth in the morning. 84 Tablet 4 11/01/19 24 Active Ozempic (1 MG/DOSE) 4 MG/3ML Subcutaneous Solution Pen-injector (Semaglutide (1 MG/DOSE))Indicat ions:History of gestational diabetes,Elevate d blood pressure reading without diagnosis of hypertension,Bod y mass index (BMI) of 40.0 to 44.9 in adult (HCC) Inject 1 mg under the skin once a week. 3 mL 5 02/12/20 24 Active Albuterol Sulfate HFA 108 (90 Base) MCG/ACT Inhalation Aerosol SolutionIndicati ons:Mild persistent asthma without complication Inhale 2 Puffs by mouth every 6 hours as needed for Shortness of Breath or Cough. 8 g 1 04/03/20 24 Active FLUoxetine HCl 40 MG Oral Capsule (PROzac)Indicati ons:Binge eating disorder,BRITANY (generalized anxiety disorder) TAKE 1 CAPSULE BY MOUTH IN THE MORNING EVERY MORNING 90 Capsule 3 04/27/20 24 Active FLUoxetine HCl 40 MG Oral Capsule (PROzac)Indicati ons:Binge eating disorder,BRITANY (generalized anxiety disorder) Take 1 Capsule by mouth in the morning. Every morning.. 90 Capsule 1 11/10/19 24 2023 Discontinued documented as of this encounter (statuses as of 04/27/2024) Active Problems Problem Noted Date Diagnosed Date Polyp of colon 06/24/2022 Overview (10/27/2022): 09/2022 - two polyps. Repeat 3yrs. Mild persistent asthma without complication 06/2022 COVID-19 virus infection 11/09/2021 Overview (11/09/2021): 10/20/21 Allergies 11/09/2021 History of gestational diabetes 11/09/2021 Eating disorder 11/09/2021 Depressive disorder 10/16/2021 documented as of this encounter (statuses as of 04/27/2024) Resolved Problems Problem Noted Date Diagnosed Date Resolved Date Body mass index (BMI) of 40. 0 to 44.9 in adult 08/02/2022 11/10/2023 Overview: Per Obesity protocol documented as of this encounter (statuses as of 04/27/2024) Immunizations Name Administration Dates Next Due COVID-19 [...] Answer Date Recorded PHQ Adult Total Score 2 05/12/2023 Hunger Vital Sign Answer Date Recorded Within [...] ages 0-17 years) Not on file 10/27/2023 Comments No Sex and Gender Information Value Date Recorded Sex Assigned at Female 10/13/2021 6:34 PM EDT Legal Sex Female 4:17 PM EDT Gender Identity Female 10/13/2021 6:34 PM EDT Sexual Orientation Straight 10/13/2021 6: 34 PM EDT documented as of this encounter Miscellaneous Notes * Telephone Encounter - Mk White, [facility] - 04/27/2024 4:26 PM ESTSigned Prescriptions: Disp Refills FLUoxetine HCl 40 MG Oral Capsule (PROzac) 90 Cap*3 Sig: TAKE 1 CAPSULE BY MOUTH IN THE MORNING EVERY MORNINGAuthorizing Provider: CHRISTOFER CARBAJAL User: MK WHITE documented in this encounter Plan of Treatment Upcoming Encounters Date Type Department Care Team (Late st Contact Info) Description 05/09/2024 8:20 AM EST Office Visit Family Practice [facility] [address] [place] [address] Christofer Carbajal MD [address] [place] [address] 05/30/2024 3:00 PM EST Telemedicine Orthopaedics [facility] [address] [place] [address] Dee Weiss PA-C [address] [place] [address] 08/01/2024 5:15 PM EDT Office Visit Gynecology/Obstetrics [facility] [address] [place] [address] Angela Ayers PA-C [address] [place] [address] Scheduled Procedures Name Priority Associated Diagnoses Date/Ti me COLONOSCOPY FLEXIBLE PROXIMA L DIAGNOSTIC Recall History of colonic polyps Health Maintenance Due Date Last Done Comments HIV Screening 08/14/1994 Hepatitis C Screening 08/14/1997 Hepatitis B Vaccine (1 of 3 - 19+ 3-dose series) 08/14/1998 HPV/Co-Test 08/14/2009 COVID-19 Vaccine ( season) 2024 02/12/2023, 02/03/2022, 10/11/2021, Additional history exists Depression Monitoring 05/12/2024 05/12/2023 Cervical Cancer Screening 10/16/2024 Pap Smear 10/16/2024 10/16/2021 Mammogram 02/16/2025 02/17/2024, 01/22, 10/29/2022, Additional history exists Colonoscopy 10/25/2025 10/25/2022, 10/25/2022 Diabetes Screening 01/19/2026 01/19/2023, 11/10/2021 Lipid Panel 11/10/2026 11/10/2021 DTap/Tdap Vaccines (2 - Td or Tdap) 09/22/2032 09/22/2022, 07/21/2008 Pneumococcal Vaccine: Pediatrics (0 to 5 Years) and At-Risk Patients (6 to 64 Years) Completed 09/22/2022 Influenza Vaccine (FLU shot) Completed , 02/03/2023, 02/14/2020, Additional history exists HPV (Gardasil) Vaccine Aged Out No lo nger eligible based on patient's age to complete this topic MENINGOCOCCAL (MENACTRA/MENVEO) Aged Out No longer eligible based on patient's age to complete this topic documented as of this encounter Medical Devices Not on filedocumented as of this encounter Visit Diagnoses Diagnosis Binge eating disorder BRITANY (generalized anxiety disorder) Generalized anxiety disorder documented in this encounter Care Teams Spa Director Relationship Specialty Start Date End Date Christofer Carbajal MD [address] [place] [address] PCP - General Internal Medicine 10/05/21 documented as of this encounter
--- OUTSIDE RECORDS SUMMARY | 2024-09-14 02:22 | External Medical Summary | Summary of Care ---
Author Name Unknown Organization [facility] Address [address] [place] [address] Phone [phone] Care Team Providers Care Fuel Cell Assembler Name Role Phone Venus Carbajal MD Primary Care Provider Reason for Visit * Reason Comments Return Visit 6 mo return, no new concerns. Encounter Details Date Type Department Care Team (Late st Contact Info) Description 07/12/2024 1:00 PM EST Office Visit [facility] [address] [facility] [place] [address] Venus Carbajal MD [address] [place] [address] PTSD (post-traumatic stress disorder)*; BRITANY (generalized anxiety disorder); Mild binge-eating disorder Allergies No known active allergiesdocumented as of this encounter (statuses as of 07/13/2024) Medications Azelastine HCl 0.1 % Nasal Solution Administer into nostril 1 [place] in the morning AND 1 [place] before bedtime. 30 mL 12 10/06/19 22 Active Additional Information Patient not taking.Reported on 07/12/2024 Fluticasone Propionate 50 MCG/ACT Nasal Suspension Administer into each nostril 2 Sprays in the morning AND 2 Sprays before bedtime. 11.1 mL 5 10/06/19 22 Active Additional Information Patient not taking.Reported on [...] g 1 04/03/20 24 Active FLUoxetine HCl 20 MG Oral Capsule (PROzac)Indicati ons:PTSD (post-traumatic stress disorder),BRITANY (generalized anxiety disorder),Mild binge-eating disorder Take 3 Capsules by mouth in the morning. Every morning.. 90 Capsule 5 07/12/19 25 Active FLUoxetine HCl 40 MG Oral Capsule (PROzac)Indicati ons:Binge eating disorder,BRITANY (generalized anxiety disorder) TAKE 1 CAPSULE BY MOUTH IN THE MORNING EVERY MORNING 90 Capsule 3 04/27/20 24 2024 Discontinued documented as of this encounter [...] Sign Reading Time Taken Comments Blood Pressure 117/92 07/12/2024 12:57 PM EST Pulse 96 07/12/2024 12:57 PM EST Temperature 36.4 °C (97.5 °F) 07/12/2024 1 2:57 PM EST Respiratory Rate - - Oxygen Saturation 96% 07/12/2024 12: 57 PM EST Inhaled Oxygen Concentration - - Weight 113.6 kg (250 lb 6.4 oz) 025 12:57 PM EST Height 168.9 cm (5' 6.5") 07/12/2024 12 :57 PM EST Body Mass Index 39.81 07/12/2024 12:57 PM EST documented in this encounter Patient Instructions * Patient Instructions* Venus Carbajal MD - 07/12/2024 1:32 PM EST Homework: -- check insurance to see if Ozempic is covered in current plan year and what will be your cost. -- Prozac increase to 60mg. If it's terrible at any point, message me and we can switch to Lexapro. -- I sent note to Sleep medicine to f/u results of home test. documented in this encounter Progress Notes * Venus Carbajal MD - 07/12/2024 1:14 PM EST Images from the original note were not included. History of Present Illness Jayshree Garcia is a 43 year old female that presents for Return Visit (6 mo return, no new concerns. ) Last seen by me in October. Fluoxetine increased to 40 mg daily. Seeing Selene Dejesus PhD weekly for therapy. Diagnoses include C-PTSD from childhood. Have considered spectrum or ADHD but haven't fleshed out diagnosis. Wonders if a different medication would help more. Has only ever tried Prozac. Oldestchild does really well on Lexapro. Very vivid dreams, always had these, slightly worse with prozac.Feels exhausted when wakes up; feels like has lived a life in her sleep. SI are passive, discussingwith therapist. Eating consistently good-pro. Still some overeat, Ozempic not really touching appetite anymore. True binges are gone. 75% of days eating reasonably. Not restricting. Weight fluctuating in 10lbs range. Not sure if will still be able to get covered. Completed sleep study but never received results. Message sent to Sleep to ask about results. Coughing at night improved after fall allergies resolved. Nicotine: none Cannabis: none Alcohol: none Current medications and allergies reviewed. Past medical history and problem list reviewed. Physical Exam Vitals: 07/12/24 1257 Temp: 97.5 °F (36.4 °C) Pulse: 96 SpO2: 96% BP: 117/92 BMI: 39.81 BP Readings from Last 3 Encounters: 07/12/24 117/92 04/03/24 122/76 11/17/23 122/78 Wt Readings from Last 3 Encounters: 07/12/24 250 lb 6.4 oz (113.6 kg) 11/17/23 244 lb (110.7 kg) 11/10/23 244 lb 6.4 oz (110.9 kg) Physical Exam Vitals and nursing note reviewed. Constitutional: Appearance: Normal appearance. She is not ill-appearing. Skin: Coloration: Skin is not jaundiced or pale. Neurological: Mental Status: She is alert. Psychiatric: Mood and Affect: Mood normal. Behavior: Behavior normal. I have reviewed the following results: TSH, CBC, and BMP Assessment and Plan PTSD (post-traumatic stress disorder) Patient Instructions Homework: -- check insurance to see if Ozempic is covered in current plan year and what will be your cost. -- Prozac increase to 60mg. If it's terrible at any point, message me and we can switch to Lexapro. -- I sent note to Sleep medicine to f/u results of home test. BRITANY (generalized anxiety disorder) - FLUoxetine HCl 20 MG Oral Capsule (PROzac); Take 3 Capsules by mouth in the morning. Every morning.. Mild binge-eating disorder - FLUoxetine HCl 20 MG Oral Capsule (PROzac); Take 3 Capsules by mouth in the morning. Every morning.. Wrap-Up Follow Up: Return in about 6 weeks (around 08/23/2024) for Return with Solomon. | For: Return with Solomon | Check-out note: Okay to use private slot. Time: I spent a total of 20-29 minutes (exact time 25 mins) on the date of service in preparation, delivery, and documentation of the care provided to Jayshree Garcia excluding any time spent in the performance of separately billed services. documented in this encounter Nursing Notes * Tad Sena CMA - 07/12/2024 12:57 PM EST The patient has been properly identified by confirmation of name and date of . Chief Complaint Patient presents with Return Visit 6 mo return, no new concerns. documented in this encounter Plan of Treatment Upcoming Encounters Date Type Department Care Team (Late st Contact Info) Description 08/01/2024 5:15 PM EDT Office Visit Gynecology/Obstetrics [facility] [address] [place] [address] Angela Ayers PA-C [address] [address] 08/23/2024 9:40 AM EDT Office Visit Family Practice [facility] [address] [address] Venus Carbajal MD [address] [address] Scheduled Procedures Name Priority Associated Diagnoses Date/Ti [...] as of this encounter Visit Diagnoses Diagnosis PTSD (post-traumatic stress disorder)- Primary Posttraumatic stress disorder BRITANY (generalized anxiety disorder) Generalized anxiety disorder Mild binge-eating disorder documented in this encounter Care Teams Fuel Cell Assembler Relationship Specialty Start Date End Date Venus Carbajal MD [address] [address] PCP - General Internal Medicine 10/05/21 documented as of this encounter
--- OUTSIDE RECORDS SUMMARY | 2024-09-14 02:22 | External Medical Summary | Continuity of Care Document ---
Author Name Unknown Organization [facility] [address] [id number] Address [address] [place], [place] [id number] Encounter [facility] [id number] Date(s): 05/02/24 - 05/02/24 [facility] [address] [facility] [address] [facility] [address] [place] [id number] Encounter Diagnosis Foot pain(Discharge Diagnosis) - 05/02/24 Discharge Disposition: Home or Self Care Attending Physician: MD Patten Jesse Allergies, Adverse Reactions, Alerts No Known Allergies Immunizations Given and Recorded Vaccine Date Status Refusal Reason influenza virus vaccine, inactivated 02/14/20 Give n Medications Jencycla 0.35 mg oral tablet Start: 05/02/24 9:01:00 AM EST Start Date: 05/02/24 Status: Ordered multivitamin Start: 11/11/20 10:11:00 AM EDT, 1 tab, PO, Daily Start Date: 11/11/20 Status: Ordered PROzac 40 mg oral capsule Start: 05/02/24 8:59:00 AM EST, 1 cap, PO, Daily Start Date: 05/02/24 Status: Ordered Mental Status 05/02/24 Barriers to Learning one year None evide nt Mandatory Health Literacy Documentation Yes Health Literacy Communication Barriers N ever Primary Language Nigerien Problem List Condition Confirmation Course Effective Dates Status Health St [facility] Informant Depression Confirmed Active Diagnosis Diagnosis Type Effective Dates Health Status [facility] Informant Foot pain Discharge Diagnosis 05/02/24 Non-Specified Procedures Procedure Date Related Diagnosis Body Site Status Plain X-ray of left hip 1 04/03/20 Completed Right hand x-ray 2 01/26/19 Comple rosas 1IMPRESSION: No acute bony abnormality is identified. [facility] Imp[facility]: 1. No acute bony abnormality identified in right hand Social History Social History Type Response Smoking Status Never smoked cigaret miah Sex Female Sex Representation Female (finding) Patient Care team information Care Team Related Persons Name: LILO CHAPMAN
--- OUTSIDE RECORDS SUMMARY | 2024-09-14 02:22 | External Medical Summary | Summary of Care ---
Author Name Unknown Organization [facility] Address [address] [place] [address] Phone [phone] Care Team Providers Care Manager Winter Name Role Phone Venus Carbajal MD Primary Care Provider Reason for Visit * Reason Onset Date Comments Sleep Apnea Device 03/14/2024 Encounter Details Date Type Department Care Team (Late st Contact Info) Description 03/14/2024 Telephone Sleep Lab [facility] [address] [place] [address] Tarah Young CRNP [address] [place] [address] Sleep Apnea Device Allergies No known active allergiesdocumented as of this encounter (statuses as of 07/12/2024) Medications Azelastine HCl 0.1 % Nasal Solution Administer into nostril 1 [place] in the morning AND 1 [place] before bedtime. 30 mL 12 022 Active Additional Information Patient not taking.Reported [...] as of this encounter (statuses as of 07/12/2024) Active Problems Problem Noted Date Diagnosed Date [...] as of this encounter (statuses as of 07/12/2024) Resolved Problems Problem Noted Date Diagnosed Date Resolved Date Body mass index (BMI) of 40. 0 to 44.9 in adult 08/02/2022 11/10/2023 Overview: Per Obesity protocol documented as of this encounter (statuses as of 07/12/2024) Immunizations Name Administration Dates Next Due COVID-19 [...] encounter Miscellaneous Notes * Telephone Encounter - Patrciia Grimaldo LPN - 07/12/2024 2:13 PM EST [...] Visit Gynecology/Obstetrics [facility] [address] [address] Angela Ayers PA-C [address] [address] 08/23/2024 9:40 AM EDT Office Visit Family Practice [facility] [address] [place] [address] Venus Carbajal MD [address] [place] [address] Scheduled Procedures Name Priority Associated Diagnoses Date/Ti [...] filedocumented as of this encounter Care Teams Manager Winter Relationship Specialty Start Date End Date Venus Carbajal MD [address] [address] PCP - General Internal Medicine 10/05/21 documented as of this encounter
--- OUTSIDE RECORDS SUMMARY | 2024-09-14 02:22 | External Medical Summary | Summary of Care ---
Author Name Unknown Organization [facility] Address [address] [place] [address] Phone [phone] Care Team Providers Care Grain Buyer Name Role Phone Venus Carbajal MD Primary Care Provider Reason for Visit * Reason Onset Date Comments Imaging Records Request 05/01/2024 Encounter Details Date Type Department Care Team (Late st Contact Info) Description 05/01/2024 Telephone Radiology Film File [address] [place] [address] Support, Imaging Radiology [address] [place] [address] Imaging Records Request Allergies No known active allergiesdocumented as of this encounter (statuses as of 05/01/2024) Medications Azelastine HCl 0.1 % Nasal Solution Administer into nostril 1 Vincent in the morning AND 1 Vincent before bedtime. 30 mL 12 2 Active Additional Information Patient taking differently:1 Vincent Nasal BID (.AM/PM),Indications: as needed, Reported on 04/03/2024 Fluticasone Propionate 50 MCG/ACT Nasal Suspension Administer into each nostril 2 Sprays in the morning AND 2 Sprays before bedtime. 11.1 mL 5 2 Active Additional Information Patient taking differently:2 Vincent Each Nostril BID (.AM/PM),Indications: as needed, Reported on 04/03/2024 Qvar RediHaler 80 MCG/ACT Inhalation Aerosol Breath Activated (Beclomethasone Diprop HFA)Indications:M ild persistent asthma without complication Inhale 2 Puffs by mouth in the morning and 2 Puffs before bedtime. 1 Each 5 3 Active Additional Information Patient not taking.Reported on 04/03/2024 Norethindrone 0.35 MG Oral TabletIndications :Excessive bleeding in premenopausal period Take 1 Tablet by mouth in the morning. 84 Tablet 4 4 Active Ozempic (1 MG/DOSE) 4 MG/3ML Subcutaneous Solution Pen-injector (Semaglutide (1 MG/DOSE))Indicati ons:History of gestational diabetes,Elevated blood pressure reading without diagnosis of hypertension,Body mass index (BMI) of 40.0 to 44.9 in adult ([facility]) Inject 1 mg under the skin once a week. 3 mL 5 4 Active Albuterol Sulfate HFA 108 (90 Base) MCG/ACT Inhalation Aerosol SolutionIndicatio ns:Mild persistent asthma without complication Inhale 2 Puffs by mouth every 6 hours as needed for Shortness of Breath or Cough. 8 g 1 4 Active FLUoxetine HCl 40 MG Oral Capsule (PROzac)Indicatio ns:Binge eating disorder,BRITANY (generalized anxiety disorder) TAKE 1 CAPSULE BY MOUTH IN THE MORNING EVERY MORNING 90 Capsule 3 4 Active documented as of this encounter (statuses as of 05/01/2024) Active Problems Problem Noted Date Diagnosed Date Polyp of colon 06/24/2022 Overview (10/27/2022): 09/2022 - two polyps. Repeat 3yrs. Mild persistent asthma without complication 06/2022 COVID-19 virus infection 11/09/2021 Overview (11/09/2021): 10/20/21 Allergies 11/09/2021 History of gestational diabetes 11/09/2021 Eating disorder 11/09/2021 Depressive disorder 10/16/2021 documented as of this encounter (statuses as of 05/01/2024) Resolved Problems Problem Noted Date Diagnosed Date Resolved Date Body mass index (BMI) of 40. 0 to 44.9 in adult 08/02/2022 11/10/2023 Overview: Per Obesity protocol documented as of this encounter (statuses as of 05/01/2024) Immunizations Name Administration Dates Next Due COVID-19 [...] encounter Miscellaneous Notes * Telephone Encounter - Nika Covington OSA - 05/01/2024 11:51 AM EST Patient requested to release 10/20/22, 04/18/24 XR Foot, 11/13/22 MRI Foot image(s) to [facility]. [place] Authorization to Release form on file. Images pushed to [employer] PACS external connection. documented in this encounter Plan of Treatment Upcoming Encounters Date Type Department Care Team (Late st Contact Info) Description 05/09/2024 8:20 AM EST Office Visit Family [facility] [address] [place] [address] Venus Carbajal MD [address] [place] [address] 05/30/2024 3:00 PM EST Telemedicine Orthopaedics [facility] [address] [place] [address] Dee Weiss PA-C [address] [place] [address] 08/01/2024 5:15 PM EDT Office Visit Gynecology/Obstetrics [facility] [address] [place] [id number] Angela Ayers PA-C [address] [place] [address] Scheduled Procedures Name Priority Associated Diagnoses Date/Ti [...] filedocumented as of this encounter Care Teams Grain Buyer Relationship Specialty Start Date End Date Venus Carbajal MD [address] [place] [address] PCP - General Internal Medicine 10/05/21 documented as of this encounter
--- OUTSIDE RECORDS SUMMARY | 2024-09-14 02:22 | External Medical Summary | Summary of Care ---
Author Name Unknown Organization [facility] Address [address] [place] [address] Phone [phone] Care Team Providers Care Paving Contractor Name Role Phone Venus Carbajal MD Primary Care Provider Reason for Visit * Reason Comments Acute Persistent cough Encounter Details Date Type Department Care Team (Late st Contact Info) Description 04/03/2024 9:00 AM EST Office Visit Family [facility] [address] [place] [address] Arabella Fabian CRNP [address] [place] [address] Acute sinusitis, recurrence not specified, unspecified location*; Mild persistent asthma without complication Allergies No known active allergiesdocumented as of this encounter (statuses as of 04/03/2024) Medications Azelastine HCl 0.1 % Nasal Solution Administer into nostril 1 [place] in the morning AND 1 [place] before bedtime. 30 mL 12 10/06/19 22 Active Additional Information Patient taking differently:1 [place] Nasal BID (.AM/PM),Indications: as needed, Reported on 04/03/2024 Fluticasone Propionate 50 MCG/ACT Nasal Suspension Administer into each nostril 2 Sprays in the morning AND 2 Sprays before bedtime. 11.1 mL 5 10/06/19 22 Active Additional Information Patient taking differently:2 [place] Each Nostril BID (.AM/PM),Indications: as needed, Reported [...] morning. 84 Tablet 4 11/01/19 24 Active FLUoxetine HCl 40 MG Oral Capsule (PROzac)Indicatio ns:Binge eating disorder,BRITANY (generalized anxiety disorder) Take 1 Capsule by mouth in the morning. Every morning.. 90 Capsule 1 11/10/19 24 Active Ozempic (1 MG/DOSE) 4 MG/3ML [...] Cough. 8 g 1 04/03/20 24 Active Doxycycline Hyclate 100 MG Oral CapsuleIndication s:Acute sinusitis, recurrence not specified, unspecified location Take 1 Capsule by mouth in the morning and 1 Capsule before bedtime. Do all this for 10 days. Until gone.. 20 Capsule 04/03/20 24 024 Active Albuterol Sulfate HFA 108 (90 Base) MCG/ACT Inhalation Aerosol SolutionIndicatio ns:Mild persistent asthma without complication Inhale 2 Puffs by mouth every 6 hours as needed for Shortness of Breath or Cough. 8 g 1 06/24/19 23 024 Discontin ued(Refil l) Nirmatrelvir&Rod navir 300/100 20 x 150 MG & 10 x 100MG Oral Tablet Therapy Pack (Paxlovid) Take 2 pink tablets of Nirmatrelvir and 1 white tablet of Ritonavir two times a day by mouth. 30 Tablet 12/20/19 24 024 Discontin ued(Medic ation List Clean Up) documented as of this encounter (statuses as of 04/03/2024) Active Problems Problem Noted Date Diagnosed Date Polyp of colon 06/24/2022 Overview (10/27/2022): 09/2022 - two polyps. Repeat 3yrs. Mild persistent asthma without complication 06/2022 COVID-19 virus infection 11/09/2021 Overview (11/09/2021): 10/20/21 Allergies 11/09/2021 History of gestational diabetes 11/09/2021 Eating disorder 11/09/2021 Depressive disorder 10/16/2021 documented as of this encounter (statuses as of 04/03/2024) Resolved Problems Problem Noted Date Diagnosed Date Resolved Date Body mass index (BMI) of 40. 0 to 44.9 in adult 08/02/2022 11/10/2023 Overview: Per Obesity protocol documented as of this encounter (statuses as of 04/03/2024) Immunizations Name Administration Dates Next Due COVID-19 [...] Sign Reading Time Taken Comments Blood Pressure 122/76 04/03/2024 8:36 AM EST Pulse 79 04/03/2024 8:36 AM EST Temperature 36.7 °C (98 °F) 04/03/2024 8:36 AM EST Respiratory Rate 18 04/03/2024 8:36 AM EST Oxygen Saturation 99% 04/03/2024 8:36 AM EST Inhaled Oxygen Concentration - - Weight - - Height - - Body Mass Index - - documented in this encounter Progress Notes * Arabella Fabian CRNP - 04/03/2024 8:44 AM EST Images from the original note were not included. History of Present Illness Jayshree Garcia is a 43 year old female that presents for Acute (Persistent cough ) HPI Here for cough and congestion x 2 weeks. Daughter diagnosed with walking pneumonia yesterday and has similar symptoms. She is having a lot of sinus drainage and cough is productive with greenish phlegm. Notes some mild intermittent SOB that is "typical" for her this time of year with her asthma. Not on daily maintenance inhaler. Only used qvar for a short period after covid, no longer using. Denies n/v/d. Current Outpatient Medications Medication Sig Dispense Refill Albuterol Sulfate HFA 108 (90 Base) MCG/ACT Inhalation Aerosol Solution Inhale 2 Puffs by mouth every 6 hours as needed for Shortness of Breath or Cough. 8 g 1 Doxycycline Hyclate 100 MG Oral Capsule Take 1 Capsule by mouth in the morning and 1 Capsule beforebedtime. Do all this for 10 days. Until gone.. 20 Capsule 0 Ozempic (1 MG/DOSE) 4 MG/3ML Subcutaneous Solution Pen-injector (Semaglutide (1 MG/DOSE)) Inject 1 mg under the skin once a week. 3 mL 5 FLUoxetine HCl 40 MG Oral Capsule (PROzac) Take 1 Capsule by mouth in the morning. Every morning.. 90 Capsule 1 Norethindrone 0.35 MG Oral Tablet Take 1 Tablet by mouth in the morning. 84 Tablet 4 Azelastine HCl 0.1 % Nasal Solution Administer into nostril 1 [place] in the morning AND 1 [place] before bedtime. (Patient taking differently: Administer 1 [place] into nostril in the morning and 1 [place] before bedtime.) 30 mL 12 Fluticasone Propionate 50 MCG/ACT Nasal Suspension Administer into each nostril 2 Sprays in the morning AND 2 Sprays before bedtime. (Patient taking differently: Administer 2 Sprays into each nostrilin the morning and 2 Sprays before bedtime.) 11.1 mL 5 Qvar RediHaler 80 MCG/ACT Inhalation Aerosol Breath Activated (Beclomethasone Diprop HFA) Inhale 2 Puffs by mouth in the morning and 2 Puffs before bedtime. (Patient not taking: Reported on 04/03/2024) 1 Each 5 No current facility-administered medications for this visit. Physical Exam Vitals: 04/03/24 0836 Temp: 36.7 °C (98 °F) Pulse: 79 Resp: 18 SpO2: 99% BP: 122/76 Physical Exam Vitals reviewed. Constitutional: Appearance: Normal appearance. HENT: Head: Normocephalic and atraumatic. Right Ear: Tympanic membrane, ear canal and external ear normal. Left Ear: Tympanic membrane, ear canal and external ear normal. Nose: Congestion and rhinorrhea present. Mouth/Throat: Mouth: Mucous membranes are moist. Pharynx: No oropharyngeal exudate or posterior oropharyngeal erythema. Eyes: Extraocular Movements: Extraocular movements intact. Conjunctiva/sclera: Conjunctivae normal. Pupils: Pupils are equal, round, and reactive to light. Cardiovascular: Rate and Rhythm: Normal rate and regular rhythm. Heart sounds: Normal heart sounds. Pulmonary: Effort: Pulmonary effort is normal. Breath sounds: Normal breath sounds. Abdominal: General: There is no distension. Palpations: Abdomen is soft. Tenderness: There is no abdominal tenderness. Musculoskeletal: Cervical back: Neck supple. Right lower leg: No edema. Left lower leg: No edema. Lymphadenopathy: Cervical: No cervical adenopathy. Skin: General: Skin is warm and dry. Capillary Refill: Capillary refill takes less than 2 seconds. Neurological: Mental Status: She is alert and oriented to person, place, and time. Psychiatric: Behavior: Behavior normal. Thought Content: Thought content normal. Assessment and Plan Acute sinusitis recurrence not specified, unspecified location - Doxycycline Hyclate 100 MG Oral Capsule; Take 1 Capsule by mouth in the morning and 1 Capsule before bedtime. Do all this for 10 days. Until gone.. Mild persistent asthma without complication Recommend restarting QVAR for cold/flu season - Albuterol Sulfate HFA 108 (90 Base) MCG/ACT Inhalation Aerosol Solution; Inhale 2 Puffs by mouth every 6 hours as needed for Shortness of Breath or Cough. Wrap-Up Follow Up: Return if symptoms worsen or fail to improve. Time: I spent a total of 20-29 minutes (exact time 20 mins) on the date of service in preparation, delivery, and documentation of the care provided to Jayshree Garcia excluding any time spent in the performance of separately billed services. documented in this encounter Nursing Notes * Johanna Saab LPN - 04/03/2024 8:34 AM EST The patient has been properly identified by confirmation of name and date of . Chief Complaint Patient presents with Acute Persistent cough Pt has this cough that is productive cough for 2 weeks. Most bothersome in the evening. Green mucus, irritate throat. Daughter dx with pneumonia. documented in this encounter Plan of Treatment Upcoming Encounters Date Type Department Care Team (Late st Contact Info) Description 05/09/2024 8:20 AM EST Office Visit Family Practice [facility] [address] [place] [address] Venus Carbajal MD [address] [place] [address] 08/01/2024 5:15 PM EDT Office Visit Gynecology/Obstetrics [facility] [address] [place] [address] Angela Ayers PA-C [address] [place] [address] Scheduled Procedures Name Priority Associated Diagnoses Date/Ti [...] as of this encounter Visit Diagnoses Diagnosis Acute sinusitis, recurrence not specified, unspecified location- Primary Mild persistent asthma without complication Unspecified asthma documented in this encounter Care Teams Paving Contractor Relationship Specialty Start Date End Date Venus Carbajal MD [address] [place] [address] PCP - General Internal Medicine 10/05/21 documented as of this encounter
--- OUTSIDE RECORDS SUMMARY | 2024-09-14 02:22 | External Medical Summary | Summary of Care ---
Author Name Unknown Organization [facility] Address [address] [place] [address] Phone [phone] Care Team Providers Care Scrum Coach Name Role Phone Venus Carbajal MD Primary Care Provider Reason for Visit * Reason Onset Date Comments Sleep Apnea Device 03/14/2024 Encounter Details Date Type Department Care Team (Late st Contact Info) Description 03/14/2024 Telephone Sleep Lab [facility] [address] [place] [address] Tarah Young CRNP [address] [place] [address] Sleep Apnea Device Allergies No known active allergiesdocumented as of this encounter (statuses as of 07/12/2024) Medications Azelastine HCl 0.1 % Nasal Solution Administer into nostril 1 [place] in the morning AND 1 [place] before bedtime. 30 mL 12 022 Active [...] Visit Gynecology/Obstetrics [facility] [address] [place] [address] Angela Ayers PA-C [address] [place] [address] 08/23/2024 9:40 AM EDT Office Visit Family Practice [facility] [address] [place] [address] Venus Carbajal MD [address] [place] [address] Scheduled Procedures Name Priority Associated Diagnoses Date/Ti [...] filedocumented as of this encounter Care Teams Scrum Coach Relationship Specialty Start Date End Date Venus Carbajal MD [address] [place] [address] PCP - General Internal Medicine 10/05/21 documented as of this encounter
--- OUTSIDE RECORDS SUMMARY | 2024-09-14 02:22 | External Medical Summary | Summary of Care ---
Author Name Unknown Organization [facility] Address [address] [place] [address] Phone [phone] Care Team Providers Care Cryptological Technician Name Role Phone Venus Carbajal MD Primary Care Provider Reason for Visit * Reason Onset Date Comments Sleep Apnea Device 03/14/2024 Encounter Details Date Type Department Care Team (Late st Contact Info) Description 03/14/2024 Telephone Sleep Lab [facility] [address] [place] [address] Tarah Young CRNP [address] [place] [address] Sleep Apnea Device Allergies No known active allergiesdocumented as of this encounter (statuses as of 07/12/2024) Medications Azelastine HCl 0.1 % Nasal Solution Administer into nostril 1 [place] in the morning AND 1 [place] before bedtime. 30 mL 12 022 Active [...] PM EDT Office Visit Gynecology/Obstetrics [facility] [address] [place] [address] Angela Ayers PA-C [address] [place] [address] 08/23/2024 9:40 AM EDT Office Visit Family Practice [facility] [address] [place] [address] Venus Carbajal MD [address] [place] [address] Scheduled Procedures Name Priority Associated Diagnoses Date/Ti [...] filedocumented as of this encounter Care Teams Cryptological Technician Relationship Specialty Start Date End Date Venus Carbajal MD [address] [place] [address] PCP - General Internal Medicine 10/05/21 documented as of this encounter
--- OUTSIDE RECORDS SUMMARY | 2024-09-14 02:22 | External Medical Summary | Summary of Care ---
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 Name Role Phone Venus Carbajal MD Primary Care Provider Reason for Referral * Evaluate & Treat - Unlimited Visits (Within 10 days (routine)) - Authorized Specialty Diagnoses / Procedures Referred By Monica carreon Referred To Contact Physical Therapy / Physical Medicine And Rehab Diagnoses Foot sprain, left, initial encounter Dee Weiss PA-C [address] [place] [address] Phone: tel: fax: Referral ID Status Reason Start Date Expiration Date Visits Requested Visits Authorized [id number] Authorized Specialty Services Required 4 [phone] Question Answer Referral Priority Within 10 days (routine) Where should this appointment be scheduled? External Comments Foot sprain Proprioception and lateral ankle strengthening PT 2 x week for 4-6 weeks with HEP Reason for Visit * Reason Comments NEW PATIENT PT is here for L ank le after stepping off a curb improperly and rolling on distal side foot DOI: 04/13/24 Encounter Details Date Type Department Care Team (Late st Contact Info) Description 04/18/2024 8:00 AM EST Office Visit Orthopaedics [facility] [address] [place] [address] Dee Weiss PA-C [address] [place] [address] Foot sprain, left, initial encounter* Allergies No known active allergiesdocumented as of this encounter (statuses as of 04/18/2024) Medications Azelastine HCl 0.1 % Nasal Solution Administer into nostril 1 S[place] in the morning AND 1 S[place] before bedtime. 30 mL 12 2 Active Additional Information Patient taking differently:1 S[place] Nasal BID (.AM/PM),Indications: as needed, Reported on 04/03/2024 Fluticasone Propionate 50 MCG/ACT Nasal Suspension Administer into each nostril 2 Sprays in the morning AND 2 Sprays before bedtime. 11.1 mL 5 2 Active Additional Information Patient taking differently:2 S[place] Each Nostril BID (.AM/PM),Indications: as needed, Reported [...] the morning. 84 Tablet 4 4 Active FLUoxetine HCl 40 MG Oral Capsule (PROzac)Indicatio ns:Binge eating disorder,BRITANY (generalized anxiety disorder) Take 1 Capsule by mouth in the morning. Every morning.. 90 Capsule 1 4 Active Ozempic (1 MG/DOSE) 4 MG/3ML [...] as of this encounter (statuses as of 04/18/2024) Active Problems Problem Noted Date Diagnosed Date Polyp of colon 06/24/2022 Overview (10/27/2022): 09/2022 - two polyps. Repeat 3yrs. Mild persistent asthma without complication 06/2022 COVID-19 virus infection 11/09/2021 Overview (11/09/2021): 10/20/21 Allergies 11/09/2021 History of gestational diabetes 11/09/2021 Eating disorder 11/09/2021 Depressive disorder 10/16/2021 documented as of this encounter (statuses as of 04/18/2024) Resolved Problems Problem Noted Date Diagnosed Date Resolved Date Body mass index (BMI) of 40. 0 to 44.9 in adult 08/02/2022 11/10/2023 Overview: Per Obesity protocol documented as of this encounter (statuses as of 04/18/2024) Immunizations Name Administration Dates Next Due COVID-19 [...] as of this encounter Progress Notes * SharerDee PA-C - 04/18/2024 8:22 AM EST Jayshree Garcia is a 43 year old female who presents for consultation to [facility] for left foot injury/pain. Consult requested by Self . Jayshree Garcia is here unaccompanied History: Jayshree Garcia reports that left foot pain started 04/13/2024. Patient states she rolled her foot as she was stepping off a curb. She complains of pain across the metatarsals. Reports difficulty with ambulation. She is having difficulty tolerating shoes. Notes associated swelling. She has been using rest, ice, anti- inflammatory without significant relief. Review of systems: All others negative except those noted above in HPI. Past Medical History: Diagnosis Date Allergies 11/09/2021 COVID-19 virus infection 11/09/2021 10/20/21 Depressive disorder 10/16/2021 Migraine allergy related, occasional vision change preceeding Patient Active Problem List Diagnosis Depressive disorder COVID-19 virus infection Allergies History of gestational diabetes Eating disorder Polyp of colon Mild persistent asthma without complication Past Surgical History: Procedure Laterality Date COLONOSCOPY, DIAGNOSTIC (RECTUM) 10/25/2022 hemorrhoids/diverticulosis/biopsies show adenomatous polyps/recall 3 years/COLONOSCOPY FLEXIBLE PROXIMAL DIAGNOSTIC performed by Abida Narayan DO at [facility] HEMORRHOID REMOVAL, THROMBOSED Social History Socioeconomic History Marital status: Spouse name: Not on file Number of children: 3 Years of education: Not on file Highest education level: Not on file Occupational History Not on file Tobacco Use Smoking status: Never Smokeless tobacco: Never Substance and Sexual Activity Alcohol use: Not Currently Drug use: Never Sexual activity: Yes Partners: Male control/protection: Surgical Comment: vasectomy Other Topics Concern Not on file Social History Narrative Not on file Social Needs Financial Resource Strain: Low Risk (10/27/2023) Financial Resource Strain Do you have any trouble paying for your medications, or do you think you might in the future? (Adult - for ages 18 years and over): No Does your family have trouble paying for medicine? (Household - for ages 0-17 years): Not on file Food Insecurity: No Food Insecurity (10/27/2023) Food Insecurity Do you need food for this week? (Adult - for ages 18 years and over): No Are you able to get enough food for your family? (Household - for ages 0-17 years): Not on file Does your family need food this week? (Household - for ages 0-17 years): Not on file Do you always have enough food for your family? (Household - for ages 0-17 years): Not on file Transportation Needs: No Transportation Needs (10/27/2023) Transportation Needs Do you have trouble getting a ride to medical visits or work? (Adult - for ages 18 years and over):Never True Does your family have a hard time getting a ride to doctors’ visits? (Household - for ages 0-17 years): Not on file Has lack of transportation kept you from medical appointments, meetings, work, or from getting things needed for daily living? Check all that apply. (Adult - for ages 18 years and over): Not on file Do you (or your family) have trouble finding or paying for a ride (transportation)? (Household - for ages 0-17 years): Not on file Social Connections: Socially Integrated (10/27/2023) Social Connections How often do you feel lonely or isolated from those around you? (Adult - for ages 18 years and over): Rarely Housing Stability: Low Risk (10/27/2023) Housing Stability Do you currently live in a skilled nursing or have no steady place to sleep at night? (Adult - for ages 18 years and over): No Do you think you are at risk of becoming homeless? (Adult - for ages 18 years and over): No Does your family worry about paying for your home or becoming homeless? (Household - for ages 0-17 years): Not on file Are you homeless or worried that you might be in the future? (Adult - for ages 18 years and over): Not on file Are you (or your family) homeless or worried that you might be in the future? (Household - for ages0-17 years): Not on file Family History Problem Relation Name Age of [...] Daughter Breast Cancer No significant family history Family History; none relevant to today's HPI Review of patient's allergies indicates: No Known Allergies Current Outpatient Medications Medication Sig Dispense Refill Azelastine HCl 0.1 % Nasal Solution Administer into nostril 1 S[place] in the morning AND 1 S[place] before bedtime. (Patient taking differently: Administer 1 [place] into nostril in the morning and 1 S[place] before bedtime.) 30 mL 12 Fluticasone Propionate [...] taking: Reported on 04/03/2024) 1 Each 5 Norethindrone 0.35 MG Oral Tablet Take 1 Tablet by mouth in the morning. 84 Tablet 4 FLUoxetine HCl 40 MG Oral Capsule (PROzac) Take 1 Capsule by mouth in the morning. Every morning.. 90 Capsule 1 Ozempic (1 MG/DOSE) 4 MG/3ML Subcutaneous Solution Pen-injector (Semaglutide (1 MG/DOSE)) Inject 1 mg under the skin once a week. 3 mL 5 Albuterol Sulfate HFA 108 (90 Base) MCG/ACT Inhalation Aerosol Solution Inhale 2 Puffs by mouth every 6 hours as needed for Shortness of Breath or Cough. 8 g 1 No current facility-administered medications for this visit. Objective: Physical Exam There were no vitals filed for this visit. Estimated body mass index is 38.22 kg/m² as calculated from the following: Height as of 11/17/23: 1.702 m (5' 7"). Weight as of 11/17/23: 110.7 kg (244 lb). General: generally well-nourished and in no acute distress HEENT: normocephalic, atraumatic, EOMI, sclera anicteric. Psych: mood and affect normal , cooperative Card: Peripheral pulses: normal in affected extremity (s) Resp: equal chest rise, non-tachypneic, non-labored breathing Skin: no rash, normal Neuro: Coordination: normal; Sensation: normal on affected extremity (s) MSK: Inspection: Minimal swelling left foot. No redness, warmth, bruising, abrasion, deformity Palpation: Tenderness to palpation throughout the metatarsals on the left. No ankle tenderness. Range of motion: Dorsiflexion (normal 20): L - 20, R - 20 with pain in the left Plantarflexion (normal 50): L - 50, R - 50 with pain in the left Inversion (normal 35): L - 35, R - 35 Eversion (normal 25): L - 25, R - 25 with pain in the left Strength: Dorsiflexion: L - 5/5, R - 5/5 with pain in the left Plantarflexion: L - 5/5, R - 5/5 with pain in the left Inversion: L - 5/5, R - 5/5 Eversion: L - 5/5, R - 5/5 with pain in the left Toe Flexion: L 5/5, R 5/5 Toe Extension: L 5/5, R 5/5 Great Toe Flexion: L 5/5, R 5/5 Great Toe Extension: L 5/5, R 5/5 Radiology (I have personally reviewed the following films): X-rays of the left foot were obtained today and reviewed with patient. Those x-rays show no acute fracture or dislocation. Joint spaces areunremarkable. Assessment and Plan: Foot sprain, left, initial encounter (Primary) - XR FOOT 3 OR MORE VIEWS - PHYSICAL THERAPY REFERRAL OP Recommend immobilization in a walking boot to encourage rest. Recommend to wear the boot for 1-2 weeks until pain subsides she may then wean the boot as tolerated. Advised course of physical therapy.Encouraged ice and elevation. She will follow up with a telephone visit in 6 weeks. Dee Weiss PA-C Orthopaedics [facility] [address] [facility] [place] [id number] documented in this encounter Nursing Notes * Huyen Torres CMA - 04/18/2024 7:52 AM EST PT is here for L ankle after stepping off a curb improperly and rolling on distal side foot DOI: 04/13/24 documented in this encounter Plan of Treatment Upcoming Encounters Date Type Department Care Team (Late st Contact Info) Description 05/09/2024 8:20 AM EST Office Visit Family Practice [facility] [address] [facility] [place] [address] Venus Carbajal MD [address] [place] [address] 05/30/2024 3:00 PM EST Telemedicine [facility] [address] [facility] [place] [address] Dee Weiss PA-C [address] [place] [address] 08/01/2024 5:15 PM EDT Office Visit Gynecology/Obstetrics [facility] [address] [place] [address] Angela Ayers PA-C [address] [place] [address] Pending Results Name Type Priority Associated Diagnoses Date /Time XR FOOT 3 OR MORE VIEWS Medical Imaging Routine Foot sprain, left, initial encounter 04/18/2024 8:10 AM EST Scheduled Procedures Name Priority Associated Diagnoses Date/Ti me COLONOSCOPY FLEXIBLE PROXIMA L DIAGNOSTIC Recall History of colonic polyps Scheduled Referrals Name Type Priority Associated Diagnoses Orde r Schedule PHYSICAL THERAPY REFERRAL OP Referral Within 10 days (routine) Foot sprain, left, initial encounter Ordered: 04/18/2024 Health Maintenance Due Date Last Done Comments [...] as of this encounter Visit Diagnoses Diagnosis Foot sprain, left, initial encounter- Primary documented in this encounter Care Teams Hydroelectric Station Operator Chief Relationship Specialty Start Date End Date Venus Carbajal MD [address] [place] [address] PCP - General Internal Medicine 10/05/21 documented as of this encounter
[2024-09-14 02:37] LABS: Anion Gap 6 (3-11); BUN Creatinine Ratio 15.1 (10-20); Blood Urea Nitrogen 16 mg/dl (6-23); Calcium 8.9 mg/dl (8.6-10.3); Carbon Dioxide 25 mmol/L (21-32); Chloride 107 mmol/L (98-107); Chol HDL Ratio 3.8 (0-5); Cholesterol 218 mg/dl (0-200); Creatinine Clr Calc Pharmacy 89.3 ml/min; Glucose 93 mg/dl (70-99(Fasting)); HDL Cholesterol 58 mg/dl; LDL Cholesterol Calculated 138 mg/dl; Potassium 4.1 mmol/L (3.5-5.1); Sodium 138 mmol/L (136-145); Triglycerides 108 mg/dl (0-150); VLDL Cholesterol 22 mg/dl (0-30)
[2024-09-14 02:43] LABS: Troponin I High Sensitivity < 2.3 pg/ml (0-14)
[2024-09-14 08:25] LABS: Estimated Average Glucose 108 mg/dl; Hemoglobin A1C 5.4 % (4.5-5.6)
[2024-09-14 08:43] VITALS: O2SAT 95
[2024-09-14] MEDS: buPROPion XL 150 MG TABCR PO SCH (09:39)
[2024-09-14] MEDS: ATORVASTATIN 40 MG TAB PO SCH (09:39)
[2024-09-14] MEDS: ASPIRIN 81 MG ECTAB PO SCH (09:39)
[2024-09-14] MEDS: FLUoxetine HCL 20 MG CAP PO SCH (09:39)
[2024-09-14] MEDS: ENOXAPARIN INJ 40 MG/0.4 ML SYR SQ SCH (09:40)
--- NOTE | 2024-09-14 10:14 | Electrocardiogram Report ---
Test Reason : Blood Pressure : */* mmHG Vent. Rate : 109 BPM Atrial Rate : 109 BPM P-R Int : 174 ms QRS Dur : 96 ms QT Int : 342 ms P-R-T Axes : 56 -34 52 degrees QTcB Int : 460 ms Sinus tachycardia Left axis deviation Incomplete right bundle branch block Inferior infarct , age undetermined Poor R wave progression, consider anterior MT vs. lead placement vs. LVH Abnormal ECG When compared with ECG of 10-Jan-2020 10:52, Minimal criteria for Anterior infarct are now Present No significant change was found Confirmed by Olu Obregon ([id number]) on 09/14/2024 10:13:27 AM Referred By: Confirmed By: Olu Obregon
[2024-09-14 12:28] VITALS: BP 129/82; RESP 16; TEMP 98.2
--- NOTE | 2024-09-14 14:37 | Neurology Consultation ---
Date of Consultation September 14, 2024 Assessment & Plan (1) Stroke-like symptoms: Suspected to be related to migraine rather than stroke or TIA Plan Can continue aspirin 81 mg for now, low-dose statin adjusted to LDL. Recommend magnesium glycinate 400 mg daily at bedtime or as needed. Recommend riboflavin 400 mg daily Follow up echo cardiogram Follow up with neurology as outpatient Telehealth Consultation Telehealth Information Telehealth Information: I performed this visit using a real-time telehealth connection between my location and the patients location ([facility]). After connecting through interactive tele-video, patient was identified by name and date of and/or wristband check.Patient (or authorized healthcare repre sentative) was informed that this was a telemedicine visit and it was being conducted confidentially over secure lines. My office door was closed and no one else was present in the room with me.Patient (or authorized healthcare technical sales representative) provided consent to proceed with the visit, expressed an understanding of privacy and security of the telemedicine visit, and gave permission to have a hospital technical sales representative in the room in order to assist with the visit and to conduct portions of the visit, as needed. I informed the patient (or authorized healthcare technical sales representative) that I reviewed their record and presented the opportunity for them to ask any questions regarding the visit today. The patient agreed to participate. History of Present Illness Reason for Consultation: stroke-like symptoms Requesting Physician: Yvon Andino MD Attending Physician: Sunny Andino MD History of Present Illness 44-year-old female patient with PMH of anxiety and depression, history of panic attacks in addition to obesity. Who presented to the hospital yesterday with acute onset of chest pain and shortness of breath that was brief followed by numbness and tingling affecting the left side of the face. Workup has been negative so far. She does me that her symptoms are still present, she does not have the chest pain or the shortness of breath has been resolved since she came to the emergency room however she still feels tingling in the left side of her face in the form of hyperesthesia, which she feels when she touches the face. She denies any weakness or numbness today , however yesterday she felt that her left side felt numb. She denies any visual chages, denies any speech changes.denies any dizziness or gait changes. Allergies Allergy/AdvReac Type Severity Reaction Status Date / Time No Known Allergies Allergy Verified 09/13/24 17:23 Home Medications Medication Instructions Recorded Confirmed Type acetaminophen 500 mg tablet 1,000 mg PO Q6H PRN Pain 09/05/21 09/13/24 History (Tylenol Extra Strength) albuterol sulfate 90 mcg/actuation 2 puff inhalation Q6H PRN 09/13/24 09/13/24 History aerosol inhaler Shortness Of Breath Or Wheezing bupropion HCl 150 mg 24 hr tablet, 150 mg PO QAM 09/13/24 09/13/24 History extended release fluoxetine 20 mg capsule 40 mg PO QAM 09/13/24 09/13/24 History norethindrone (contraceptive) 0.35 0.35 mg PO QAM 09/13/24 09/13/24 History mg tablet (Jencycla) magnesium glycinate 400 mg (4 x 100 mg magnesium) PO 09/14/24 Rx HS #30 caps riboflavin (vitamin B2) 400 mg 400 mg PO DAILY #30 tabs 09/14/24 Rx tablet Patient History Social History Smoking Status: Never smoker Second Hand Exposure: Yes; Do You Dip or Chew Tobacco: No; Tobacco Cessation Education Requested by Patient: No Hx Alcohol Use: No Hx Substance Use: No Preferred Language: Andorran Communication Ability: Effective Heel Room Supervisor Required: No Beliefs That Will Affect Care: None marital status: Current Living Situation: Spouse current occupational status: unemployed Other Information That Helps Us Care for You: No Feels Safe at Home: Yes Safety Concerns: Feels Safe At This Time Assistive Devices: None Review of Systems Constitutional: Patient denies weight loss, fever, chills, and night sweats Eyes: Patient denies change in vision, tearing, pain, and redness ENT: Patient denies pain, bleeding, rhinorrhea, and dysphagia Cardiovascular: positive for chest pain, , and dyspnea with exertion Respiratory: Patient denies shortness of breath, cough, wheezing, and productive cough GI: Patient denies reflux, pain, constipation, and diarrhea Skin: Patient denies rash, dryness, and itching Allergies/Immune System: Patient denies rhinorrhea, seasonal allergies, reaction to current MEDS, and joint swelling Endocrine: Patient denies weight loss, weight gain, temperature intolerance, and excessive thirst Neurological: All negative unless mentioned in the HPI Physical Exam General Constitutional: Appearance normally developed Head and face: normocephalic and atraumatic Eyes: no ptosis, no anisocoria, and no dysconjugate gaze Respiratory: normal effort Cardiovascular: regular rhythm and regular rate Abdomen: non distended Skin: no rashes, lesions, or ulcers noted Psychiatric: normal judgement and insight, normal mood, and normal affect NEUROLOGIC EXAMINATION: Mental Status:alert, oriented to time, place, person, normal recent memory, normal remote memory, normal attention span, normal concentration, normal language and normal fund of knowledge Cranial Nerves: CN 2 - no visual defect on confrontation and pupils round, equal, reactive to light CN 3, 4, 6 - extra-ocular movements intact and no nystagmus CN 5 - facial sensation intact CN 7 - no facial asymmetry CN 8 - intact hearing CN 9, 10 - palate symmetric, normal gag CN 11 - good shoulder shrug CN 12 - tongue midline MOTOR: Strength was at least antigravity throughout, Pronator drift was absent and There were no abnormal movements SENSATION: intact and symmetric to pinprick, light touch, vibration and joint position GAIT: stable, no ataxia and can perform tandem walking COORDINATION: no ataxia with finger to nose testing and heel to bustillos testing REFLEXES: cannot assess over telemedicine NIH Stroke Scale: 1a. Level of Consciousness: alert = 0 1b. LOC Questions: (month, age): both correct = 0 1c. LOC Commands (open and close eyes, make fist and let go using non-paretic hand): obeys both correctly = 0 2. Best Gaze (eyes open and patient follows examiner's finger or face): normal = 0 3. Visual (visual threat or finger counting in each quadrant): no loss = 0 4. Facial Palsy (show teeth, raise eye brows and squeeze eyes shut, or grimace symmetry in a comatose patient): normal = 0 5a. Motor Arm (extend arm (palms down) to 90 degrees and score drift/movement (10 seconds) - Left: no drift = 0 5b. Motor Arm: (extend arm (palms down) to 90 degrees and score drift/movement (10 seconds) - Right: no drift = 0 6a. Motor Leg (elevate leg 30 degrees and score drift/ movement (5 seconds) - Left: no drift = 0 6b. Motor Leg (elevate leg 30 degrees and score drift/ movement (5 seconds) - Right: no drift = 0 7. Limb Ataxia (finger to nose, heel down bustillos): absent = 0 8. Sensory (pin prick to face, arm, trunk and leg, compare side to side): normal = 0 9. Best Language: no aphasia = 0 10. Dysarthria (evaluate speech clarity by patient repeating listed words): normal articulation = 0 11. Extinction and Inattention: no neglect = 0 Total: 0 Results & Data Vital Signs (Past 12 Hours) Vital Signs Temp Pulse Pulse Resp BP Pulse Ox O2 Del Method 09/14/24 12:27 36.8 C 81 16 129/82 95 Room Air 09/14/24 08:12 72 09/14/24 08:11 36.6 C 83 18 130/85 95 Room Air 09/14/24 08:00 72 09/14/24 08:00 Room Air 09/14/24 03:16 36.7 C 76 19 117/78 96 Room Air Laboratory Results Laboratory Results - last 24 hr 09/13/24 09/13/24 09/14/24 17:21 19:12 02:04 WBC 6.45 6.30 RBC 4.70 4.74 Hgb 13.9 14.2 Hct 40.2 40.7 MCV 85.5 85.9 MCH 29.6 30.0 MCHC 34.6 34.9 RDW Std Deviation 36.7 37.9 RDW Coeff of Tala 11.9 12.1 Plt Count 239 234 MPV 9.7 9.7 Immature Gran % (Auto) 0.2 0.3 Neut % (Auto) 67.4 64.0 Lymph % (Auto) 22.8 26.3 Larue % (Auto) 7.4 7.5 Eos % (Auto) 1.7 1.6 Baso % (Auto) 0.5 0.3 Neut # (Auto) 4.35 4.03 Lymph # (Auto) 1.47 1.66 Larue # (Auto) 0.48 0.47 Eos # (Auto) 0.11 0.10 Baso # (Auto) 0.03 0.02 Immature Gran # (Auto) 0.01 0.02 PT 10.4 INR 1.0 APTT 27 PTT Ratio 1.0 Sodium 136 138 Potassium 4.2 4.1 Chloride 104 107 Carbon Dioxide 25 25 Anion Gap 7 6 BUN 16 16 Creatinine 1.20 1.06 Est Cr Clr Drug Dosing 78.5 89.3 eGFR 56.89 66.02 BUN/Creatinine Ratio 13.3 15.1 Glucose 130 H 93 Estimat Average Glucose 108 Hemoglobin A1c 5.4 Calcium 9.0 8.9 Magnesium 1.8 Total Bilirubin 0.3 AST 20 ALT 21 Alkaline Phosphatase 81 Troponin I High Sens < 2.3 < 2.3 Total Protein 6.8 Albumin 3.9 Globulin 2.9 Albumin/Globulin Ratio 1.3 Triglycerides 108 Cholesterol 218 H LDL Cholesterol, Calc 138 VLDL Cholesterol, Calc 22 HDL Cholesterol 58 Cholesterol/HDL Ratio 3.8 HCG, Quant 1 Urine Color Yellow Urine Appearance Clear Urine pH 6.0 Ur Specific [place] > 1.045 H Urine Protein Negative Urine Glucose (UA) Negative Urine Ketones Negative Urine Blood Negative Urine Nitrite Negative Urine Bilirubin Negative Urine Urobilinogen Negative Ur Leukocyte Esterase Negative 09/14/24 09/14/24 08:59 14:11 WBC RBC Hgb Hct MCV MCH MCHC RDW Std Deviation RDW Coeff of Tala Plt Count MPV Immature Gran % (Auto) Neut % (Auto) Lymph % (Auto) Larue % (Auto) Eos % (Auto) Baso % (Auto) Neut # (Auto) Lymph # (Auto) Larue # (Auto) Eos # (Auto) Baso # (Auto) Immature Gran # (Auto) PT INR APTT PTT Ratio Sodium Potassium Chloride Carbon Dioxide Anion Gap BUN Creatinine Est Cr Clr Drug Dosing eGFR BUN/Creatinine Ratio Glucose Estimat Average Glucose Hemoglobin A1c Calcium Magnesium Total Bilirubin AST ALT Alkaline Phosphatase Troponin I High Sens < 2.3 Pending Total Protein Albumin Globulin Albumin/Globulin Ratio Triglycerides Cholesterol LDL Cholesterol, Calc VLDL Cholesterol, Calc HDL Cholesterol Cholesterol/HDL Ratio HCG, Quant Urine Color Urine Appearance Urine pH Ur Specific [place] Urine Protein Urine Glucose (UA) Urine Ketones Urine Blood Urine Nitrite Urine Bilirubin Urine Urobilinogen Ur Leukocyte Esterase Diagnostic Findings MRI of the brain shows no acute ischemic changes, no chronic infarcts. Minimal residual white matter changes related to microangiopathy. CT of the neck is unremarkable. Medications Administered Home Medications Medication Instructions Recorded Confirmed Last Taken acetaminophen 500 mg tablet 1,000 mg PO Q6H PRN Pain 09/05/21 09/13/24 Unknown (Tylenol Extra Strength) albuterol sulfate 90 mcg/actuation 2 puff inhalation Q6H PRN 09/13/24 09/13/24 Unknown aerosol inhaler Shortness Of Breath Or Wheezing bupropion HCl 150 mg 24 hr tablet, 150 mg PO QAM 09/13/24 09/13/24 09/13/24 extended release fluoxetine 20 mg capsule 40 mg PO QAM 09/13/24 09/13/24 09/13/24 norethindrone (contraceptive) 0.35 0.35 mg PO QAM 09/13/24 09/13/24 09/13/24 mg tablet (Jencycla) magnesium glycinate 400 mg (4 x 100 mg magnesium) PO 09/14/24 Unknown HS #30 caps riboflavin (vitamin B2) 400 mg 400 mg PO DAILY #30 tabs 09/14/24 Unknown tablet Active Medications Generic Name Dose Route Start Last Admin Trade Name Freq PRN Reason Stop Dose Admin Aspirin 81 mg 09/14/24 09:00 09/14/24 09:39 Aspirin 81 Mg Ectab PO 10/14/24 08:59 81 mg QAM DOROTEO Administration Atorvastatin Calcium 40 mg 09/14/24 09:00 09/14/24 09:39 Atorvastatin 40 Mg Tab PO 10/14/24 08:59 40 mg QAM DOROTEO Administration Bupropion HCl 150 mg 09/14/24 09:00 09/14/24 09:39 Bupropion Xl 150 Mg Tabcr PO 10/14/24 08:59 150 mg QAM DOROTEO Administration Enoxaparin Sodium 40 mg 09/14/24 09:00 09/14/24 09:40 Enoxaparin Inj 40 Mg/0.4 Ml Syr SQ 10/14/24 08:59 40 mg QAM DOROTEO Administration Fluoxetine HCl 40 mg 09/14/24 09:00 09/14/24 09:39 Fluoxetine Hcl 20 Mg Cap PO 10/14/24 08:59 40 mg QAM DOROTEO Administration
--- NOTE | 2024-09-14 15:15 | Discharge Summary ---
Date of Service September 14, 2024 Admission HPI Per Admitting Provider The patient is a 44-year-old female with a past medical history of anxiety who presents to the ED on with complaints of left-sided chest pain, left facial numbness, mild right facial droop. Patient reports she was cooking when she developed left-sided chest pain. She then reports developing left facial numbness. She denies any generalized weakness. Denies any nausea/vomiting/diarrhea/abdominal pain. Denies any histories of stroke. She is a non-smoker. She does not drink. Reports being on estrogen containing control over the past 2 years. Her symptoms continue to slowly improve on exam. Her chest pain is now resolved. On arrival to the ED, labs fairly unremarkable. Glucose mildly elevated 130, troponin negative, chest pain and symptoms improved after Ativan administration in ER Chest x-ray negative Head CT negative Head/neck CTA negative Chest CTA negative for PE The patient will be admitted for stroke rule out Admission Exam Per Admitting Provider Constitutional: WD/WN, vitals as above Eyes: PERRL, conjunctivae normal, anicteric sclerae ENMT: external ear and nose normal, oropharynx normal Neck: trachea midline, no thyromegaly Respiratory: normal respiratory effort, lungs clear to auscultation Cardiovascular: RRR, no murmur, no edema Gastrointestinal (Abdomen): normal bowel sounds, soft, nontender, no hepatosplenomegaly Musculoskeletal: no cyanosis or clubbing, extremities motor strength 5/5 Neurologic: PERRL, EOMI, accommodation nl, no face palsy, no dysarthria Psychiatric: A+Ox3, euthymic affect Lymphatic: no cervical or axillary lymphadenopathy Principal Diagnosis Stroke-like symptom, suspected to be secondary to migraine rather than stroke or TIA Discharge Exam Constitutional: WD/WN, vitals as above Eyes: PERRL, conjunctivae normal, anicteric sclerae ENMT: external ear and nose normal Neck: supple Respiratory: normal respiratory effort, lungs clear to auscultation Cardiovascular: RRR, no murmur, no edema Gastrointestinal (Abdomen): normal bowel sounds, soft, nontender Musculoskeletal: extremities motor strength 5/5 Neurologic: PERRL, EOMI, no face palsy, no dysarthria, moves extremities Psychiatric: A+Ox3, euthymic affect Discharge Data Allergies Allergy/AdvReac Type Severity Reaction Status Date / Time No Known Allergies Allergy Verified 09/13/24 17:23 Consultations 09/13/24 17:50 ED Decision to Admit Stat 09/13/24 20:41 Consult Neurology Routine Ordered Studies 09/13/24 16:59 CT angio head w con Stat Findings: No definite stenosis or aneurysm is seen of the anterior, middle, or posterior cerebral artery circulations. The visualized vertebral arteries and the basilar artery appear unremarkable Impression: Unremarkable CTA of the brain CT angio neck with con Stat Findings: No stenosis is seen of the common carotid arteries bilaterally. The carotid bulbs appear normal. The remainder of the internal carotid arteries appear patent bilaterally. No stenosis of the external carotid arteries is seen The vertebral arteries are patent bilaterally with no significant stenosis seen. The visualized thoracic aorta appears unremarkable There is multilevel degenerative disc disease and osteoarthritis of the cervical spine. Impression: Unremarkable CTA of the neck CT head/brain wo con Stat Findings: There is no sign of intracranial hemorrhage. There is normal saavedra-white matter differentiation with no sign of acute or old infarction. No midline shift or other form of herniation is identified. There is no hydrocephalus. No obvious mass lesion is seen on this noncontrast examination. The visualized portions of the orbits and paranasal sinuses appear unremarkable. The mastoid air cells appear clear Impression: Unremarkable noncontrast CT of the brain 09/13/24 17:01 CT angio chest dissec wo/w con Stat Findings: There is mild dependent subsegmental atelectasis in both lower lobes. The lungs otherwise appear clear without infiltrate or mass. There is no pleural effusion or pneumothorax. There is no sign of pulmonary fibrosis or other diffuse interstitial process. No endobronchial lesion is seen There is no mediastinal, hilar, or axillary adenopathy. The thoracic aorta appears unremarkable with no sign of aneurysm or dissection. There is no pericardial effusion. There is no definite sign of pulmonary embolism. The visualized upper abdomen appears unremarkable. No fracture is seen. No focal osseous lesion is evident Impression: 1. Normal-appearing thoracic aorta 2. No definite sign of pulmonary embolism 3. Essentially normal-appearing lungs 09/13/24 20:41 MR brain wo con Routine FINDINGS: Brain: Age-appropriate central and peripheral atrophy. No acute stroke. No focal parenchymal abnormality. No acute hemorrhage. No abnormal extra-axial fluid collection. Ventricles: No midline shift. No ventriculomegaly. Bones/joints: Unremarkable. No acute fracture. Sinuses: Unremarkable as visualized. No acute sinusitis. Mastoid air cells: Unremarkable as visualized. No mastoid effusion. Orbits: Unremarkable as visualized. IMPRESSION: No acute abnormality. Hospital Course (1) Anxiety: (2) TIA (transient ischemic attack): Plan The patient is a 44-year-old female who presented to the ED on with complaints of left-sided chest pain, left facial numbness and right-sided facial droop Rule out TIA/CVA: Head CT negative, NIH 2, left facial numbness and mild right facial droop noted No TNK per neurology, admit for routine stroke rule out, head CT/head/neck CTA negative Check MRI, check echo, check cholesterol, check A1c Permissive hypertension, telemetry monitoring, neurology consult Brain MRI - FINDINGS: Brain: Age-appropriate central and peripheral atrophy. No acute stroke. No focal parenchymal abnormality. No acute hemorrhage. No abnormal extra-axial fluid collection. Ventricles: No midline shift. No ventriculomegaly. Bones/joints: Unremarkable. No acute fracture. Sinuses: Unremarkable as visualized. No acute sinusitis. Mastoid air cells: Unremarkable as visualized. No mastoid effusion. Orbits: Unremarkable as visualized. IMPRESSION: No acute abnormality. Echo - LV EF 60-65%, LV wall motion is normal. No significant valvular pathology. Injection of contrast documented no interatrial shunt. A1c 5.4%, LDL 138 Neurology consulted and discussed with - Stroke-like symptoms: Suspected to be related to migraine rather than stroke or TIA Plan Can continue aspirin 81 mg for now, low-dose statin adjusted to LDL. Recommend magnesium glycinate 400 mg daily at bedtime or as needed. Recommend riboflavin 400 mg daily Follow up with neurology as outpatient Hx anxiety: Continue home anxiety medications including fluoxetine/Wellbutrin Total Time Total Time Spent Total Time Spent (In Minutes): 40 Discharge Plan Discharge Items Patient Disposition: Home - Self-Care Reason For Visit: TIA Discharge Diagnosis: Stroke-like symptom, suspected to be secondary to migraine rather than stroke or TIA Activity: Per Instructions section Non-emergency contact: Primary Care Provider and Specialist Call non-emergency contact if: you have any medication questions and your symptoms worsen Follow-up/Referrals: Venus Carbajal MD [Primary Care Provider] - (Date & Time 09/19/2024 11:00 AM Provider: Venus Carbajal MD [facility], [place] ) Diet: Heart Healthy Addtl Attending Provider Instructions: Follow up with your primary care doctor and neurologist. Take aspirin and atorvastatin , as prescribed. Take magnesium and riboflavin , as prescribed. Pending Studies at Discharge: No Stand-Alone Forms: My [facility] [employer], Smoking Cessation Medications and DC Order Prescriptions: New riboflavin (vitamin B2) 400 mg tablet 400 mg PO DAILY Qty: 30 0RF magnesium glycinate 100 mg magnesium capsule 400 mg PO HS Qty: 30 0RF atorvastatin 40 mg Tablet 40 mg PO QAM Qty: 30 0RF aspirin 81 mg Tablet,Delayed Release (Dr/Ec) 81 mg PO QAM Qty: 30 0RF Continued acetaminophen [Tylenol Extra Strength] 500 mg Tablet 1,000 mg PO Q6H PRN (Reason: Pain) albuterol sulfate 90 mcg/actuation HFA aerosol inhaler 2 puff INHALATION Q6H PRN (Reason: Shortness Of Breath Or Wheezing) norethindrone (contraceptive) [Jencycla] 0.35 mg tablet 0.35 mg PO QAM fluoxetine 20 mg capsule 40 mg PO QAM bupropion HCl 150 mg tablet extended release 24 hr 150 mg PO QAM Discharge Orders: Discharge Order (Routine); Ordered 09/14/24 Ordered By: Sunny Andino Admission Data Admit Date/Time: 09/13/24 18:06 Attending Provider: Sunny Andino Admit Provider: Ayde Almanza Primary Care Provider: Venus Carbajal. Other Providers: Ayde Almanza; Trever Rosenberg Other Interventions: Discharge Summary Assessment (RN) Last Done: 09/14/24 15:18
[2024-09-14 15:20] VITALS: PULSE 90
== END 2024-09-14 15:58 | disposition home or self-care (01) ==
LOC: ED 16:53 → 4W 16:53 → SUATTDRO 18:06 → 4W 20:12